=== PATIENT | female | born 1935 | race Two or more races ===

== ENCOUNTER 2023-11-06 15:50 | Inpatient (IN) | payer MEDICARE, OTHER ==
[~2023-11-06] VITALS: Ht 152.4 cm; Wt 87.6 kg
[2023-11-06 17:11] LABS: Basophils # (auto) 0.1 10 ^3/uL (0-0.2); Basophils % (auto) 0.8 % (0.0-2.0); Eosinophils # (auto) 0.1 10 ^3/uL (0-0.8); Eosinophils % (auto) 0.9 % (0.0-7.0); Hematocrit 37.5 % (36.0-46.0); Hemoglobin 12.1 g/dL (12.2-16.2); Lymphocytes # (auto) 0.9 10 ^3/uL (0.4-5.4); Lymphocytes % (auto) 12.4 % (10.0-50.0); Mean Corpuscular Hemoglobin 28.8 pg (28.0-32.0); Mean Corpuscular Hgb Conc. 32.4 g/dL (32.0-36.0); Mean Corpuscular Volume 89.1 fL (80.0-100.0); Monocytes # (auto) 0.4 10 ^3/uL (0-1.3); Monocytes % (auto) 6.1 % (0.0-12.0); Neutrophils # (auto) 5.5 10 ^3/uL (1.6-8.6); Neutrophils % (auto) 79.8 % (37.0-80.0); Red Blood Cells 4.21 10^6/uL (4.0-5.20); Red Cell Distribution Width 15.9 % (11.8-14.3); White Blood Cell 6.9 10^3/uL (4.4-10.8)
[2023-11-06 17:23] LABS: Alanine Aminotransferase 32 U/L (7-40); Albumin 4.4 g/dL (3.2-4.8); Alkaline Phosphatase 128 U/L (46-116); Anion Gap 5 (5-15); Aspartate Aminotransferase 31 U/L (13-40); BUN/Creatinine Ratio 10.5 (10.0-20.0); Blood Urea Nitrogen 12 mg/dL (9-23); Calcium 9.1 mg/dL (8.7-10.4); Carbon Dioxide 27 mmol/L (20-30); Chloride 108 mmol/L (98-107); Glucose 133 mg/dL (74-106); Magnesium 2.1 mg/dL (1.6-2.6); Sodium 140 mmol/L (136-145)
[2023-11-06 17:24] LABS: Bilirubin, Total 1.4 mg/dL (0.2-1.0); Total Protein 7.3 g/dL (5.7-8.2)
[2023-11-06 18:00] VITALS: PULSE 60; RESP 18; O2SAT 92
[2023-11-06 18:36] LABS: Urine Bacteria FEW /hpf (None Seen); Urine Blood Negative /uL (Negative); Urine Clarity Clear (Clear); Urine Color Colorless (Yellow); Urine Protein, UAD Negative (Negative); Urine Specific Gravity 1.011 (1.001-1.035); Urine Urobilinogen Normal (Negative); Urine WBC 13 /hpf (0 - 5)
[2023-11-06 19:15] VITALS: PULSE 69; RESP 15; O2SAT 95
[2023-11-06] MEDS ORDERED: cefTRIAXone 1GM/50ML D5W 50 ML IV ONE (19:30)
[2023-11-06] MEDS ORDERED: MORPHINE SULFATE INJ 2 MG/ml SYRG IV PRN (20:45)
[2023-11-06] MEDS ORDERED: NITROGLYCERIN 0.4 MG SL TAB SL PRN (20:45)
[2023-11-06] MEDS ORDERED: ACETAMINOPHEN 325 MG TAB PO PRN (20:45)
[2023-11-06] MEDS ORDERED: ATOR20TA50 PO (21:12)
[2023-11-06] MEDS ORDERED: OLME20TA53 PO (21:12)
[2023-11-06] MEDS ORDERED: AMIO100T3 OR (21:12)
[2023-11-06] MEDS ORDERED: METO-158 PO (21:12)
[2023-11-06] MEDS ORDERED: FURO20TA3 PO (21:12)
[2023-11-06] MEDS ORDERED: DOCU-94 PO (21:12)
[2023-11-06] MEDS ORDERED: CYA100I IM (21:12)
[2023-11-06] MEDS ORDERED: LEVO112T2 PO (21:12)
[2023-11-06] MEDS ORDERED: ESCI10TA PO (21:12)
[2023-11-06] MEDS ORDERED: CHOL20007 OR (21:12)
[2023-11-06] MEDS ORDERED: RIVA10TA PO (21:12)
[2023-11-06] MEDS ORDERED: ALPR0.5T PO (21:15)
[2023-11-06] MEDS: ATORVASTATIN 20 MG TAB PO SCH ×2 (22:00→22:34)
[2023-11-06] MEDS: AMIODARONE HCL 200 MG TAB PO SCH ×2 (22:34→22:39)
[2023-11-07] VITALS (9 sets, daily range): BP systolic 136–169; BP diastolic 42–69; PULSE 59–69; RESP 16–18; TEMP 97.6–98.7; O2SAT 94–98
[2023-11-07 05:39] LABS: Basophils # (auto) 0.1 10 ^3/uL (0-0.2); Basophils % (auto) 0.9 % (0.0-2.0); Eosinophils # (auto) 0.1 10 ^3/uL (0-0.8); Eosinophils % (auto) 1.6 % (0.0-7.0); Hematocrit 35.5 % (36.0-46.0); Hemoglobin 11.7 g/dL (12.2-16.2); Lymphocytes # (auto) 1.1 10 ^3/uL (0.4-5.4); Mean Corpuscular Hemoglobin 29.3 pg (28.0-32.0); Mean Corpuscular Hgb Conc. 33.1 g/dL (32.0-36.0); Mean Corpuscular Volume 88.5 fL (80.0-100.0); Monocytes # (auto) 0.5 10 ^3/uL (0-1.3); Monocytes % (auto) 7.5 % (0.0-12.0); Red Blood Cells 4.02 10^6/uL (4.0-5.20); Red Cell Distribution Width 15.6 % (11.8-14.3); White Blood Cell 6.8 10^3/uL (4.4-10.8)
[2023-11-07 05:47] LABS: Alanine Aminotransferase 31 U/L (7-40); Alkaline Phosphatase 115 U/L (46-116); Anion Gap 11 (5-15); Aspartate Aminotransferase 30 U/L (13-40); BUN/Creatinine Ratio 10.3 (10.0-20.0); Blood Urea Nitrogen 11 mg/dL (9-23); Carbon Dioxide 21 mmol/L (20-30); Chloride 108 mmol/L (98-107); Glucose 112 mg/dL (74-106); Potassium 3.8 mmol/L (3.5-5.1); Sodium 140 mmol/L (136-145)
[2023-11-07 05:48] LABS: Albumin 3.9 g/dL (3.2-4.8); Bilirubin, Total 1.4 mg/dL (0.2-1.0); Total Protein 6.7 g/dL (5.7-8.2)
[2023-11-07] MEDS ORDERED: LEVOTHYROXINE SODIUM 112 MCG TAB PO SCH (07:00)
[2023-11-07] MEDS: AMIODARONE HCL 200 MG TAB PO SCH ×2 (10:00→11:02)
[2023-11-07] MEDS: FUROSEMIDE 20 MG TAB PO SCH ×2 (10:00→11:02)
[2023-11-07] MEDS: METOPROLOL SUCCINATE XL 50 MG TAB PO SCH ×2 (10:00→11:01)
[2023-11-07] MEDS: cefTRIAXone 1GM/50ML D5W 50 ML IV SCH (11:00)
[2023-11-07] MEDS ORDERED: POTASSIUM CHL 10 Meq TABLET PO SCH (12:56)
[2023-11-07] MEDS ORDERED: hydroCHLOROthiazide 25 MG TAB PO ONE (13:15)
[2023-11-07] MEDS ORDERED: hydrALAZINE HCL 20 MG/ML VL IV PRN (13:15)
[2023-11-07] MEDS: LEXAPRO 10 MG PO SCH (15:22)
[2023-11-07] MEDS: TOPROL 50 MG PO SCH (15:22)
[2023-11-07] MEDS: KLOR CON 8 MEQ PO SCH (15:24)
[2023-11-07] MEDS: BENICAR 20 MG PO SCH (15:26)
[2023-11-07] MEDS ORDERED: RIVAROXABAN 15 MG TAB PO SCH (18:00)
[2023-11-07] MEDS ORDERED: XANAX 0.5 MG PO SCH (22:00)
[2023-11-07] MEDS: LIPITOR 20 MG PO SCH (22:00)
[2023-11-07] MEDS: XARELTO 15 MG PO SCH (22:00)
[2023-11-08] VITALS (7 sets, daily range): BP systolic 126–152; BP diastolic 42–79; PULSE 60–72; RESP 14–20; TEMP 97.7–98.6; O2SAT 93–97
[2023-11-08 05:08] LABS: Basophils # (auto) 0.1 10 ^3/uL (0-0.2); Basophils % (auto) 0.9 % (0.0-2.0); Eosinophils # (auto) 0.1 10 ^3/uL (0-0.8); Eosinophils % (auto) 1.9 % (0.0-7.0); Hematocrit 36.1 % (36.0-46.0); Hemoglobin 11.8 g/dL (12.2-16.2); Lymphocytes # (auto) 1.2 10 ^3/uL (0.4-5.4); Lymphocytes % (auto) 20.7 % (10.0-50.0); Mean Corpuscular Hemoglobin 28.6 pg (28.0-32.0); Mean Corpuscular Hgb Conc. 32.7 g/dL (32.0-36.0); Mean Corpuscular Volume 87.5 fL (80.0-100.0); Monocytes # (auto) 0.5 10 ^3/uL (0-1.3); Monocytes % (auto) 8.6 % (0.0-12.0); Neutrophils # (auto) 3.9 10 ^3/uL (1.6-8.6); Neutrophils % (auto) 67.9 % (37.0-80.0); Nucleated Red Blood Cells % 0.1 %; Red Blood Cells 4.12 10^6/uL (4.0-5.20); Red Cell Distribution Width 15.9 % (11.8-14.3); White Blood Cell 5.8 10^3/uL (4.4-10.8)
[2023-11-08 05:15] LABS: Calcium 9.2 mg/dL (8.7-10.4); Chloride 106 mmol/L (98-107); Potassium 3.9 mmol/L (3.5-5.1); Sodium 140 mmol/L (136-145)
[2023-11-08 05:16] LABS: Anion Gap 10 (5-15); Carbon Dioxide 24 mmol/L (20-30)
[2023-11-08 05:21] LABS: BUN/Creatinine Ratio 11.2 (10.0-20.0); Blood Urea Nitrogen 13 mg/dL (9-23); Glucose 113 mg/dL (74-106)
[2023-11-08 05:26] LABS: INR 1.42 (0.9-1.15); Partial Thromboplastin Time 56.4 SEC (24.5-34.5); Prothrombin Time 14.6 sec (9.3-11.8)
[2023-11-08] MEDS ORDERED: SYNTHROID 112 MCG PO SCH (07:00)
[2023-11-08] MEDS: cefTRIAXone 1GM/50ML D5W 50 ML IV SCH (08:48)
[2023-11-08] MEDS: BENICAR 20 MG PO SCH ×2 (10:00→10:42)
[2023-11-08] MEDS: LEXAPRO 10 MG PO SCH ×2 (10:00→21:31)
[2023-11-08] MEDS: TOPROL 50 MG PO SCH (10:00)
[2023-11-08] MEDS ORDERED: PATIENTS OWN MEDICATION PO SCH ×2 (10:00)
[2023-11-08] MEDS: hydroCHLOROthiazide 25 MG TAB PO SCH (10:24)
[2023-11-08] MEDS: KLOR CON 8 MEQ PO SCH (10:28)
[2023-11-08] MEDS ORDERED: FUROSEMIDE 40 MG/4 ML VIAL IV ONE (16:45)
[2023-11-08] MEDS: LIPITOR 20 MG PO SCH (21:31)
[2023-11-08] MEDS: XARELTO 15 MG PO SCH (22:00)
[2023-11-09] VITALS (8 sets, daily range): BP systolic 120–147; BP diastolic 40–56; PULSE 60–70; RESP 18–20; TEMP 97.9–98; O2SAT 91–97
[2023-11-09] MEDS: ONDANSETRON HCL 4 MG/2 ML VIAL IV PRN ×2 (04:55→09:31)
[2023-11-09 06:33] LABS: Basophils # (auto) 0.1 10 ^3/uL (0-0.2); Basophils % (auto) 0.8 % (0.0-2.0); Eosinophils # (auto) 0.1 10 ^3/uL (0-0.8); Eosinophils % (auto) 1.8 % (0.0-7.0); Hematocrit 34.4 % (36.0-46.0); Hemoglobin 11.4 g/dL (12.2-16.2); Lymphocytes # (auto) 1.2 10 ^3/uL (0.4-5.4); Lymphocytes % (auto) 18.5 % (10.0-50.0); Mean Corpuscular Hgb Conc. 33.1 g/dL (32.0-36.0); Mean Corpuscular Volume 87.5 fL (80.0-100.0); Monocytes # (auto) 0.6 10 ^3/uL (0-1.3); Monocytes % (auto) 9.7 % (0.0-12.0); Neutrophils # (auto) 4.3 10 ^3/uL (1.6-8.6); Neutrophils % (auto) 69.2 % (37.0-80.0); Nucleated Red Blood Cells % 0.1 %; Red Blood Cells 3.93 10^6/uL (4.0-5.20); Red Cell Distribution Width 15.2 % (11.8-14.3); White Blood Cell 6.3 10^3/uL (4.4-10.8)
[2023-11-09 06:44] LABS: Anion Gap 11 (5-15); Carbon Dioxide 24 mmol/L (20-30); Chloride 103 mmol/L (98-107); Potassium 3.7 mmol/L (3.5-5.1); Sodium 138 mmol/L (136-145)
[2023-11-09 06:45] LABS: Calcium 8.8 mg/dL (8.7-10.4)
[2023-11-09 06:50] LABS: BUN/Creatinine Ratio 10.9 (10.0-20.0); Blood Urea Nitrogen 14 mg/dL (9-23); Glucose 116 mg/dL (74-106)
[2023-11-09] MEDS ORDERED: LEVOTHYROXINE SODIUM 25 MCG TAB PO SCH (07:00)
[2023-11-09] MEDS ORDERED: LEVOTHYROXINE SODIUM 112 MCG TAB PO SCH (07:00)
[2023-11-09] MEDS: cefTRIAXone 1GM/50ML D5W 50 ML IV SCH (08:40)
[2023-11-09] MEDS: TOPROL 50 MG PO SCH (10:00)
[2023-11-09] MEDS: hydroCHLOROthiazide 25 MG TAB PO SCH (10:00)
[2023-11-09] MEDS: BENICAR 20 MG PO SCH (10:08)
[2023-11-09] MEDS: KLOR CON 8 MEQ PO SCH (10:09)
[2023-11-09] MEDS: LEXAPRO 10 MG PO SCH (10:10)
[2023-11-09] MEDS ORDERED: LEVO-140 PO (15:29)
[2023-11-09] MEDS ORDERED: CEPH250C PO (15:29)
== END 2023-11-09 17:55 | disposition home or self-care (01) | DRG 280 ==
LOC: ER 15:50 → TELE 20:51 → TELE-WESTW 23:34
PROVIDERS: ADMIT Internal Medicine; ATTEND Internal Medicine
PROC: 4B02XSZ Measurement of Cardiac Pacemaker, External Approach (ICD-10-PCS; principal; 2023-11-08)
DX: I13.0 Hypertensive heart and chronic kidney disease with heart failure and stage 1 through stage 4 chronic kidney disease, or unspecified chronic kidney disease (principal); I21.A1 Myocardial infarction type 2; I50.33 Acute on chronic diastolic (congestive) heart failure; J96.00 Acute respiratory failure, unspecified whether with hypoxia or hypercapnia; N17.0 Acute kidney failure with tubular necrosis; D68.59 Other primary thrombophilia; N39.0 Urinary tract infection, site not specified; I48.21 Permanent atrial fibrillation; Z66 Do not resuscitate; R00.1 Bradycardia, unspecified; E03.9 Hypothyroidism, unspecified; E66.9 Obesity, unspecified; Z96.642 Presence of left artificial hip joint; E78.5 Hyperlipidemia, unspecified; N18.9 Chronic kidney disease, unspecified; Z79.01 Long term (current) use of anticoagulants; Z82.49 Family history of ischemic heart disease and other diseases of the circulatory system; Z83.3 Family history of diabetes mellitus; Z95.0 Presence of cardiac pacemaker; Z68.37 Body mass index [BMI] 37.0-37.9, adult; Z88.5 Allergy status to narcotic agent; Z88.8 Allergy status to other drugs, medicaments and biological substances; Z90.49 Acquired absence of other specified parts of digestive tract
CPT/HCPCS: 36415; 71045; 71250; 80048; 80053; 81001; 83735; 83880; 84439; 84443; 84484; 85025; 85610; 85730; 86850; 86900; 86901; 87086; 87088; 87186; 93005; 93306; 96365; 97110; 97116; 97163; 97530; 99291; G0378; J2405

== ENCOUNTER 2025-01-01 16:27 | Inpatient (IN) | payer MEDICARE, OTHER ==
[~2025-01-01] VITALS: Ht 152.4 cm; Wt 84.4 kg
[~2025-01-01 16:27] MED LIST: ALPR0.5T PO; AMIO100T3 OR; ATOR20TA50 PO; CEPH250C PO; CHOL20007 OR; CYA100I IM; DOCU-94 PO; ESCI10TA PO; FEXO-131 PO; FURO20TA3 PO; LEVO-140 PO; METO-158 PO; METO25TA36 PO; OLME20TA53 PO; POM PO; POTA8TAB38 PO; RIVA10TA PO
--- NOTE | 2025-01-01 16:49 | ECG ---
[facility] Test Date: 2025-01-01 Test Time: 16:34:30 Pat Name: DEANDRE GRAMAJO Department: ER Room: 0290T Gender: F Cvicu Nurse: ERIC : 1935 Requested By: HUNTER BARON Order Number: [id number] Reading MD: Cole Hall Measurements Intervals [place] Rate: 93 P: 0 CA: 0 QRS: -74 QRSD: 111 T: 217 QT: 357 QTc: 445 Interpretive Statements Atrial fibrillation Incomplete left bundle branch block LVH with secondary repolarization abnormality Anterior Q waves, possibly due to LVH Electronically Signed On 01-07-2025 16:57:52 PST by Cole Hall Please click the below link to view image of tracing.
--- NOTE | 2025-01-01 17:39 | ED.PDOC ---
Uma. trauma (HPI) HPI Comments 89 y.o female with PMHx of AFIB, HTN, CHF, thyroid disease, presents to the ED via EMS s/p mechanical fall today. Patient reports she was reaching over to hang and object over the back of a chair at home, lost balance and fell on her left side. Patient complains of left hip and pelvic pain and is unable to bear any we ight on left lower extremity. Patient denies any dizziness, lightheadedness, chest pain, SOB or LOC during fall. Patient reports previous falling incidents recently with right shoulder fracture. Chief Complaint: Fall Injury Time Seen by MD: 17:31 Primary Care Provider: UNKNOWN Reviewed notes: Nurses Notes, Sheriff Deputy Notes, Medications, Allergies Allergies: Coded Allergies: Codeine (Verified Allergy, Unknown, 11/06/23) Hydrocodone (Verified Allergy, Unknown, 11/06/23) Home Meds Active Scripts Levothyroxine Sodium (Synthroid) 137 Mcg Tab, 137 MCG PO QAM for 30 Days, #30 TAB Prov:JOSE L FLORES MD 11/09/23 Cephalexin (KEFLEX CAPSULE) 250 Mg Cp, 500 MG PO TID for 5 Days, #15 CAP Prov:JOSE L FLORES MD 11/09/23 Reported Medications Alprazolam (Xanax) 0.5 Mg Tb, 1 TAB PO DAILY, #30 TAB 11/06/23 Amiodarone Hcl (AMIODARONE HCL) 100 Mg Tab, 100 MG OR BID, TAB 11/06/23 Docusate Sodium (Colace) 100 Mg Cap, 100 MG PO DAILY, CAP 11/06/23 Cholecalciferol (VITAMIN D3) 2,000 Unit Tab, 1000 UNIT OR, TAB 11/06/23 Vitamin B12 (Vitamin B-12) 1,000 Mcg/1 Ml Ij, 1000 MCG IM, INJ 11/06/23 Atorvastatin Calcium (ATORVASTATIN CALCIUM) 20 Mg Tab, 1 TAB PO DAILY, #90 TAB 3 Refills 11/06/23 Furosemide (Furosemide) 20 Mg Tab, 20 MG PO DAILY, MG 11/06/23 Escitalopram Oxalate (Lexapro) 10 Mg Tab, 1 TAB PO DAILY, #30 TAB 11/06/23 Olmesartan Medoxomil (Benicar) 20 Mg Tab, 20 MG PO DAILY, TAB 12/29/23 Rivaroxaban (XARELTO) 10 Mg Tab, 15 MG PO DAILY, TAB 11/06/23 Metoprolol Tartrate (Metoprolol Tartrate) 50 Mg Tab, 50 MG PO DAILY for 30 Days, MG 11/06/23 Information Source: Patient Mode of Arrival: EMS Severity: Moderate Timing: Hours Duration: Since onset Location: (L) Hip Location of laceration: None Mechanism: Fall Associated signs and symtoms: Other Past Medical History PAST MEDICAL HISTORY: AFIB, Anemia, Anxiety, CKF, High Lipids, HTN, Thyroid Surgical History: Cholecystectomy, Hysterectomy, Pacemaker Surgical History (Other): left shoulder and hemorrhoidectomy 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 Family History Family History: Reviewed,noncontributory to illness Social History Smoker: Non-Smoker Alcohol: Occasionally Drugs: Denies Drug Use Lives In: Home Constitutional: denies: chills, diaphoresis, fatigue, fever, malaise, sweats, weakness, others EENTM: denies: blurred vision, double vision, ear bleeding, ear discharge, ear drainage, ear pain, ear ringing, eye pain, eye redness, hearing loss, mouth pain, mouth swelling, nasal discharge, nose bleeding, nose congestion, nose pain, photophobia, tearing, throat pain, throat swelling, voice changes, others Respiratory: denies: cough, hemoptysis, orthopnea, SOB at rest, shortness of breath, SOB with excertion, stridor, wheezing, others Cardiovascular: denies: chest pain, dizzy spells, diaphoresis, Dyspnea on exertion, edema, irregular heart beat, left arm pain, lightheadedness, palpitations, PND, syncope, others Gastrointestinal: denies: abdomen distended, abdominal pain, blood streaked bowels, constipated, diarrhea, dysphagia, difficulty swallowing, hematemesis, melena, nausea, poor appetite, poor fluid intake, rectal bleeding, rectal pain, vomiting, others Genitourinary: denies: abnormal vagina bleeding, burning, dyspareunia, dysuria, flank pain, frequency, hematuria, incontinence, pain, , vagina discharge, urgency, others Neurological: denies: dizziness, fainting, headache, left sided numbness, left sided weakness, numbness, paresthesia, pre-existing deficit, right sided numbness, right sided weakness, seizure, speech problems, tingling, tremors, weakness, others Musculoskeletal: reports: others (left hip pain and pelvic pain ); denies: back pain, gout, joint pain, joint swelling, muscle pain, muscle stiffness, neck pain Integumetry: denies: bruises, change in color, change in hair/nails, dryness, laceration, lesions, lumps, rash, wounds, others Allergic/Immunocompromised: denies: Difficulty Healing, Frequent Infections, Hives, Itching, others Hematologic/Lymphatic: denies: anemia, blood clots, easy bleeding, easy br uising, swollen glands, others Endocrine: denies: excessive hunger, excessive sweating, excessive thirst, excessive urination, flushing, intolerance to cold, intolerance to heat, unexplained weight gain, unexplained weight loss, others Psychiatric: denies: anxiety, bipolar disorder, depression, hopeless, panic disorder, schizophrenia, sleepless, suicidal, others All Other Systems: Reviewed and Negative Physical Exam General Appearance: No Apparent Distress, Obese HEENT: Other (Pupils and face symmetric. Moist mucous membranes.) Neck: Full Range of Motion, Non-Tender, Normal Inspection, Supple Respiratory: Lungs Clear, No Accessory Muscle Use, No Respiratory Distress, Normal Breath Sounds Cardiovascular: Irregular, No Edema, No JVD Breast Exam: Deferred Gastrointestinal: Non Tender, Soft Genitalia: Deferred Pelvic: Deferred Rectal: Deferred Extremities: Normal inspection, No pedal edema, Other (Pelvic bony tenderness at the area of overlying and to the left of the pubic symphysis. Left hip lateral soft tissue tenderness and painful range of motion) Neurologic: Alert (Oriented x4), Normal Affect, Normal Mood, Other (Moves all extremities. No gross focal deficit.) Cerebellar Function: NOT DONE Reflexes: NOT DONE Skin: Dry, Normal Color, Warm Lymphatic: NOT DONE Was a procedure done? Was a procedure done?: No EKG EKG : Comments AFib, rate 93, normal QRS and QTC intervals, left axis deviation, possible old anteroseptal infarct, inferior and lateral T-wave inversion Differential Diagnosis Multiple Trauma: Fractures, Abrasions, Contusion, Other (Sprain, strain, dislocation, contusion, ACS, FL, arrhythmia, among others) X-Ray, Labs, Meds, VS Vital Signs Date Time Temp Pulse Resp B/P (MAP) Pulse Ox O2 Delivery O2 Flow Rate FiO2 01/01/25 22:17 124 16 132/73 01/01/25 16:34 93 01/01/25 16:27 98.3 90 18 139/61 (87) 97 Lab Test 01/01/25 22:32 01/01/25 21:09 01/01/25 19:00 01/01/25 18:08 Range/Units POC Glucose 170 H 70-106 mg/dl Troponin I High Sensitivity 68 *H 69 *H 69 *H </=34 ng/L White Blood Count 18.9 H 4.4-10.8 10^3/uL Red Blood Count 4.85 4.0-5.20 10^6/uL Hemoglobin 13.4 12.2-16.2 g/dL Hematocrit 41.5 36.0-46.0 % Mean Corpuscular Volume 85.4 80.0-100.0 fL Mean Corpuscular Hemoglobin 27.7 L 28.0-32.0 pg Mean Corpuscular Hemoglobin Concent 32.4 32.0-36.0 g/dL Red Cell Distribution Width 16.5 H 11.8-14.3 % Platelet Count 183 140-450 10^3/uL Mean Platelet Volume 8.4 6.9-10.8 fL Neutrophils (%) (Auto) 90.3 H 37.0-80.0 % Lymphocytes (%) (Auto) 4.2 L 10.0-50.0 % Monocytes (%) (Auto) 5.2 0.0-12.0 % Eosinophils (%) (Auto) 0.1 0.0-7.0 % Basophils (%) (Auto) 0.2 0.0-2.0 % Neutrophils # (Auto) 17.1 H 1.6-8.6 10 ^3/uL Lymphocytes # (Auto) 0.8 0.4-5.4 10 ^3/uL Monocytes # (Auto) 1.0 0-1.3 10 ^3/uL Eosinophils # (Auto) 0 0-0.8 10 ^3/uL Basophils # (Auto) 0 0-0.2 10 ^3/uL Nucleated Red Blood Cells 0.0 % Sodium Level 142 136-145 mmol/L Potassium Level 3.8 3.5-5.1 mmol/L Chloride Level 106 98-107 mmol/L Carbon Dioxide Level 23 20-31 mmol/L Anion Gap 13 5-15 Blood Urea Nitrogen 16 9-23 mg/dL Creatinine 1.28 H 0.550-1.02 mg/dL Glomerular Filtration Rate Calc 41 >90 mL/min BUN/Creatinine Ratio 12.5 10.0-20.0 Serum Glucose 140 H 74-106 mg/dL Calcium Level 9.7 8.7-10.4 mg/dL B-Type Natriuretic Peptide 149.96 0-100 pg/mL [place] [address] Ph: [phone] DIAGNOSTIC IMAGING Diagnostic Imaging Report : [id number] Signed PATIENT: DEANDRE GRAMAJO ACCT: [id number] UNIT: [id number] : 1935 LOC: ER ROOM / BED: / AGE / SEX: 89 / F ADM STATUS: REG ER SERVICE 54 ORDERING PHYSICIAN: HUNTER BROWN MD PROCEDURE(s): CXRP - CHEST PORTABLE REASON: fall ORDER NUMBER(s): [id number], ACCESSION NUMBER(s): [id number] CHEST RADIOGRAPH Indication: fall Technique: Single frontal view of the chest was obtained Comparison: XY CHEST PORTABLE on DOS: 11/06/23 FINDINGS: Lines and Tubes: Pacemaker in place unchanged Lungs: No focal consolidation. Pleura: No effusion. No pneumothorax. Cardiomediastinal contours: Unremarkable Bones: No acute osseous abnormality. IMPRESSION: 1. No acute cardiopulmonary disease. 2. No significant change from 3. No pneumothorax no pleural. 4. Internal fixation device in place in the proximal left humerus. ATED BY: JOSÉ MIGUEL CHANDLER Jr., DO DICTATED DATE/TIME: 01/01/251832 SIGNED BY: JOSÉ MIGUEL CHANDLER Jr., SIGNED DATE/TIME: 01/01/251832 CC: [address] [address] Ph: [phone] DIAGNOSTIC IMAGING Diagnostic Imaging Report : [id number] Signed PATIENT: DEANDRE GRAMAJO ACCT: [id number] UNIT: [id number] : 1935 LOC: ER ROOM / BED: / AGE / SEX: 89 / F ADM STATUS: REG ER SERVICE 54 ORDERING PHYSICIAN: HUNTER BROWN MD PROCEDURE(s): PL2CT - PELVIS WO CONTRAST REASON: pelvic pain s/p fall ORDER NUMBER(s): [id number], ACCESSION NUMBER(s): [id number] Exam: CT PELVIS WO CONTRAST History: pelvic pain s/p fall Comparison Study: None available at time of dictation. Technique: Multidetector CT of the pelvis was performed from iliac crests to pubic symphysis after the administration of intravenous contrast was administered during this examination. Portal venous imaging was obtained. Axial, coronal and sagittal multiplanar reformats were performed by the technologist on a separate workstation. Radiation Dose : CT Dose: CTDI volume is 26.31 mGy. Dose-length product is 1255.75 mGy*cm Findings: Visualized bowel: No bowel wall thickening or dilatation. Ascites: Absent Lymphadenopathy: No pelvic or mesenteric lymphadenopathy. Vasculature: The visualized abdominal aorta is normal in size and caliber. Abdominal and pelvic vessels demonstrate normal enhancement. Pelvic Organs: Unremarkable Musculoskeletal: No acute osseous abnormality. Minimally displaced fracture of the inferior pubic ramus on the left. Internal fixation device noted in the proximal left femur. Bladder: Unremarkable Soft tissues: Unremarkable. IMPRESSION: 1. Minimally displaced fracture inferior pubic ramus on the left 2. Internal fixation device in the proximal left femur All CT scans at this medical facility are performed using dose modulation techniques as appropriate to a performed exam including the following: Automated exposure control was utilized; adjustment of the MA and/or KV according to patient size; and use of iterative reconstruction technique. ATED BY: JOSÉ MIGUEL CHANDLER Jr., DO DICTATED DATE/TIME: 01/01/251830 SIGNED BY: JOSÉ MIGUEL CHANDLER Jr., SIGNED DATE/TIME: 01/01/251830 CC: X-Ray, Labs, Meds, VS Comment 89-year-old female with a history of AFib, anemia, CKD, hypertension, hyperlipidemia and thyroid disease brought in by EMS from home complaining of left-sided hip and pelvic pain status post mechanical fall Vitals unremarkable Exam remarkable for left-sided hip soft tissue tenderness with painful range of motion and bony pelvic pain overlying and to the left of the area of the pubic symphysis Rhythm strip independently interpreted by me: AFib, rate 93, no PVCs Chest x-ray IMPRESSION: 1. No acute cardiopulmonary disease. 2. No significant change from 3. No pneumothorax no pleural. 4. Internal fixation device in place in the proximal left humerus. CT pelvis IMPRESSION: 1. Minimally displaced fracture inferior pubic ramus on the left 2. Internal fixation device in the proximal left femur CBC remarkable for WBC 18.9, metabolic panel remarkable for creatinine 1.28, serial troponins 69, 69 and 68 BNP 149.96 Patient treated with the following in the ED: Morphine 2 mg IV, Zofran 4 mg IV, aspirin 325 mg p.o. On re-evaluation, patient states hip and pelvic pain have improved. Vitals were stable. She is not having any chest pain or shortness breath. Plan is to admit the patient for orthopedic and Cardiology evaluation. Time of 1ST Reevaluation: 17:36 Reevaluation 1ST: Unchanged Patient Education/Counseling: Diagnosis, Treatment, Prognosis Family Education/Counseling: No Family Present Departure 1 Departure Time of Disposition: 22:15 Impression: Primary Impression: Fracture of left inferior pubic ramus Qualified Codes: S32.592A - Other specified fracture of left pubis, initial encounter for closed fracture Additional Impression: Elevated troponin Disposition: ADMITTED INPATIENT Admit to: [facility] Condition: Guarded Critical Care Note Critical Care Time?: No Stability Stability form required: No Heart Score Heart Score: Heart Score Response (Comments) Value History Slightly Suspicious [address]-Deviation 2 Age >65 2 Risk Factors N/A 0 Troponin N/A 0 Total 4 I personally scribed for HUNTER BROWN MD ([facility]) on 01/01/25 at 17:39. Electronically submitted by Danika Pérez ([facility]). I personally scribed for HUNTER BROWN MD ([email or web address]) on 01/01/25 at 19:50. Electronically submitted by Danika Pérez ([facility]). HUNTER BROWN MD Jan 01, 2025 17:39
[2025-01-01 18:28] LABS: Basophils # (auto) 0 10 ^3/uL (0-0.2); Basophils % (auto) 0.2 % (0.0-2.0); Eosinophils # (auto) 0 10 ^3/uL (0-0.8); Eosinophils % (auto) 0.1 % (0.0-7.0); Hematocrit 41.5 % (36.0-46.0); Hemoglobin 13.4 g/dL (12.2-16.2); Lymphocytes # (auto) 0.8 10 ^3/uL (0.4-5.4); Lymphocytes % (auto) 4.2 % (10.0-50.0); Mean Corpuscular Hemoglobin 27.7 pg (28.0-32.0); Mean Corpuscular Hgb Conc. 32.4 g/dL (32.0-36.0); Mean Corpuscular Volume 85.4 fL (80.0-100.0); Monocytes % (auto) 5.2 % (0.0-12.0); Neutrophils # (auto) 17.1 10 ^3/uL (1.6-8.6); Neutrophils % (auto) 90.3 % (37.0-80.0); Platelet Count (auto) 183 10^3/uL (140-450); Red Blood Cells 4.85 10^6/uL (4.0-5.20); Red Cell Distribution Width 16.5 % (11.8-14.3); White Blood Cell 18.9 10^3/uL (4.4-10.8)
--- NOTE | 2025-01-01 18:34 | DVH ---
Exam: CT PELVIS WO CONTRAST History: pelvic pain s/p fall Comparison Study: None available at time of dictation. Technique: Multidetector CT of the pelvis was performed from iliac crests to pubic symphysis after th e administration of intravenous contrast was administered during this examination. Portal venous imag ing was obtained. Axial, coronal and sagittal multiplanar reformats were performed by the [employer] t on a separate workstation. Radiation Dose : CT Dose: CTDI volume is 26.31 mGy. Dose-length product is 1255.75 mGy*cm Findings: Visualized bowel: No bowel wall thickening or dilatation. Ascites: Absent Lymphadenopathy: No pelvic or mesenteric lymphadenopathy. Vasculature: The visualized abdominal aorta is normal in size and caliber. Abdominal and pelvic vesse ls demonstrate normal enhancement. Pelvic Organs: Unremarkable Musculoskeletal: No acute osseous abnormality. Minimally displaced fracture of the inferior pubic belle us on the left. Internal fixation device noted in the proximal left femur. Bladder: Unremarkable Soft tissues: Unremarkable. IMPRESSION: 1. Minimally displaced fracture inferior pubic ramus on the left 2. Internal fixation device in the proximal left femur All CT scans at this medical facility are performed using dose modulation techniques as appropriate t o a performed exam including the following: Automated exposure control was utilized; adjustment of th e MA and/or KV according to patient size; and use of iterative reconstruction technique.
--- NOTE | 2025-01-01 18:35 | DVH ---
CHEST RADIOGRAPH Indication: fall Technique: Single frontal view of the chest was obtained Comparison: XY CHEST PORTABLE on DOS: 11/06/23 FINDINGS: Lines and Tubes: Pacemaker in place unchanged Lungs: No focal consolidation. Pleura: No effusion. No pneumothorax. Cardiomediastinal contours: Unremarkable Bones: No acute osseous abnormality. IMPRESSION: 1. No acute cardiopulmonary disease. 2. No significant change from 3. No pneumothorax no pleural. 4. Internal fixation device in place in the proximal left humerus.
[2025-01-01 18:53] LABS: Chloride 106 mmol/L (98-107); Potassium 3.8 mmol/L (3.5-5.1); Sodium 142 mmol/L (136-145)
[2025-01-01 18:54] LABS: Anion Gap 13 (5-15); Calcium 9.7 mg/dL (8.7-10.4); Carbon Dioxide 23 mmol/L (20-31)
[2025-01-01 18:59] LABS: BUN/Creatinine Ratio 12.5 (10.0-20.0); Blood Urea Nitrogen 16 mg/dL (9-23); Glucose 140 mg/dL (74-106)
[2025-01-01 22:10] VITALS: O2SAT 98
[2025-01-01] MEDS: ONDANSETRON HCL 4 MG/2 ML VIAL IV ONE (22:17)
[2025-01-01] MEDS: MORPHINE SULFATE INJ 2 MG/ml SYRG IV ONE (22:17)
[2025-01-01] MEDS ORDERED: MORPHINE SULFATE INJ 2 MG/ml SYRG IV PRN (22:30)
[2025-01-01] MEDS ORDERED: NITROGLYCERIN 0.4 MG SL TAB SL PRN (22:30)
[2025-01-01] MEDS ORDERED: PATIENTS OWN MEDICATION PO SCH (22:45)
[2025-01-01] MEDS: ASPirin 325 MG TAB PO ONE (23:13)
[2025-01-01 23:20] LABS: Urine Bacteria FEW /hpf (None Seen); Urine Blood Negative /uL (Negative); Urine Clarity Clear (Clear); Urine Color Light-Yellow (Yellow); Urine Protein, UAD Negative (Negative); Urine Squamous Epithelial Cell FEW /hpf (<5); Urine Urobilinogen Normal (Negative); Urine WBC 5 /HPF (0-5); Urine pH 5.5 (5.0-9.0)
[2025-01-01] MEDS: ACETAMINOPHEN 325 MG TAB PO PRN (23:24)
[2025-01-01] MEDS: ALPRAZolam 0.5 MG TAB PO SCH (23:25)
[2025-01-01] MEDS: METOPROLOL TARTRATE 1MG/1ML-5ML VIAL IV ONE (23:36)
[2025-01-01 23:59] VITALS: PULSE 114; RESP 18; O2SAT 97
[2025-01-02] VITALS (8 sets, daily range): BP systolic 94–126; BP diastolic 56–74; PULSE 78–114; RESP 16–20; TEMP 97.4–98.6; O2SAT 91–97
[2025-01-02 00:36] LABS: Erythrocyte Sedimentation Rate 12 mm/hr (0-20)
[2025-01-02] MEDS: RIVAROXABAN 15 MG TAB PO SCH (00:46)
[2025-01-02] MEDS: AMIODARONE HCL 200 MG TAB PO SCH (00:47)
[2025-01-02 01:38] LABS: COVID19 ANTIGEN SOFIA FIA NEGATIVE (NEGATIVE); Rapid Influenza A Negative (Negative); Rapid Influenza B Negative (Negative)
[2025-01-02] MEDS: cefTRIAXone 1GM/50ML D5W 50 ML IV SCH (03:36)
--- NOTE | 2025-01-02 03:45 | DVHHPRES ---
History of Present Illness Resident Creating Document: ARJUN LACEY RESIDENT Reason for Visit: fall History of Present Illness A 89 y old female with PMHx afib, HTN, hypothyrodisim, HF who came to the ED due to a fall, she stated that at 3 pm she was in a chair and trying to reach her pijama when she felt. Pt denies any syncope, any prodromes, now she has pain in the left side of the hip when she tried to move. Pt states that 2 years ago she had a left fracture and in 2014 a left should fracture, according to the daughter, she is being falling many times Home meds: alprazolam, amiodarone 100 mg BID, atorvastatin 20 mg, lexapro 10 mg daily, synthroid 137 mcg, metoprolol succinate 25 mg, xarelto 15 mg daily, lasix 20 mg Last echo nov 2024: EF 67%, atrial enlargement, mild thickening of the LV Review of Systems Constitutional: No: Fever, Chills, Sweats, Weakness, Malaise, Other Eyes: No: Pain, Vision change, Conjunctivae inflammation, Eyelid inflammation, Other, Redness ENT: No: Ear pain, Ear discharge, Nose pain, Nose discharge, Nose congestion, Mouth pain, Mouth swelling, Throat pain, Throat swelling, Other Respiratory: No: Cough, Dry, Shortness of breath, SOB with excertion, Wheezing, Hemoptysis, Pleuritic Pain, Sputum, Wheezing, Other Cardiovascular: No: Chest Pain, Palpitations, Orthopnea, Paroxysmal Noc. Dy spnea, Edema, Lt Headedness, Other Gastrointestinal: No: Nausea, Vomiting, Abdominal Pain, Diarrhea, Constipation, Melena, Hematochezia, Other Genitourinary: No Dysuria, No Frequency, No Incontinence, No Hematuria, No Retention, No Other Musculoskeletal: No: other, neck pain, shoulder pain, arm pain, back pain, hand pain, leg pain, foot pain Skin: No: Rash, Lesions, Jaundice, Bruising, Other Neurological: No: Weakness, Numbness, Incoordination, Change in speech, Confusion, Seizures, Other Allergies: Coded Allergies: Codeine (Verified Allergy, Unknown, 11/06/23) Hydrocodone (Verified Allergy, Unknown, 11/06/23) Medications Current Medications Medications Dose Ordered Sig/Gamaliel Route Start Time Stop Time Status Last Admin Dose Admin Tramadol HCl 50 mg [id number] PRN PO 01/01/25 22:30 Nitroglycerin 0.4 mg Q5MINP PRN SL 01/01/25 22:30 Morphine Sulfate 2 mg Q30M PRN IV 01/01/25 22:30 Rivaroxaban 15 mg QPM PO 01/01/25 22:30 01/02/25 00:46 15 MG Metoprolol Succinate 25 mg DAILY PO 01/02/25 10:00 Alprazolam 0.5 mg DAILY PO 01/01/25 22:45 01/01/25 23:25 0.5 MG Acetaminophen 650 mg Q6HPRN PRN PO 01/01/25 23:15 01/01/25 23:24 650 MG Amiodarone HCl 100 mg BID PO 01/02/25 00:15 01/02/25 00:47 100 MG Exam Vital Signs Vital Signs Date Time Temp Pulse Resp B/P (MAP) Pulse Ox O2 Delivery O2 Flow Rate FiO2 01/02/25 00:16 98.6 114 20 123/72 (89) 97 98.6 01/01/25 22:10 Nasal Cannula* 2 28 General Appearance: Alert, Oriented X3, Cooperative HEENT: PERRLA, EOMI Respiratory: Clear to auscultation, Normal air movement Cardiovascular: Other (tachycardic ) Abdominal: Normal bowel sounds, Soft Extremities: No clubbing, No cyanosis Skin: No rashes, No breakdown Neuro: Normal gait, Normal speech Psych/Mental Status: Mental status NL, Mood NL Labs/Xrays Labs Test 01/02/25 00:00 01/01/25 23:45 01/01/25 23:02 01/01/25 22:32 Range/Units Influenza Type A Antigen Negative Negative Influenza Type B Antigen Negative Negative SARS-CoV-2 Antigen (Rapid) Negative NEGATIVE Erythrocyte Sedimentation Rate 12 0-20 mm/hr C-Reactive Protein High Sensitivity 0.53 <1.0 mg/dL Thyroid Stimulating Hormone (TSH) 0.87 0.55-4.78 uIU/mL POC Glucose 170 H 70-106 mg/dl Test 01/01/25 22:13 01/01/25 21:09 01/01/25 18:08 Range/Units Urine Color Light-yellow Yellow Urine Clarity Clear Clear Urine pH 5.5 5.0-9.0 Urine Specific [place] 1.020 1.001-1.035 Urine Protein Negative Negative Urine Ketones Negative Negative Urine Blood Negative Negative /uL Urine Nitrite Negative Negative Urine Bilirubin Negative Negative Urine Urobilinogen Normal Negative mg/dL Urine Leukocyte Esterase 2+ Negative /uL Urine RBC 1 0 - 4 /hpf Urine Microscopic WBC 5 0-5 /HPF Urine Squamous Epithelial Cells Few <5 /hpf Urine Bacteria Few H None Seen /hpf Urine Glucose Normal Normal mg/dL Troponin I High Sensitivity 68 *H </=34 ng/L White Blood Count 18.9 H 4.4-10.8 10^3/uL Red Blood Count 4.85 4.0-5.20 10^6/uL Hemoglobin 13.4 12.2-16.2 g/dL Hematocrit 41.5 36.0-46.0 % Mean Corpuscular Volume 85.4 80.0-100.0 fL Mean Corpuscular Hemoglobin 27.7 L 28.0-32.0 pg Mean Corpuscular Hemoglobin Concent 32.4 32.0-36.0 g/dL Red Cell Distribution Width 16.5 H 11.8-14.3 % Platelet Count 183 140-450 10^3/uL Mean Platelet Volume 8.4 6.9-10.8 fL Neutrophils (%) (Auto) 90.3 H 37.0-80.0 % Lymphocytes (%) (Auto) 4.2 L 10.0-50.0 % Monocytes (%) (Auto) 5.2 0.0-12.0 % Eosinophils (%) (Auto) 0.1 0.0-7.0 % Basophils (%) (Auto) 0.2 0.0-2.0 % Neutrophils # (Auto) 17.1 H 1.6-8.6 10 ^3/uL Lymphocytes # (Auto) 0.8 0.4-5.4 10 ^3/uL Monocytes # (Auto) 1.0 0-1.3 10 ^3/uL Eosinophils # (Auto) 0 0-0.8 10 ^3/uL Basophils # (Auto) 0 0-0.2 10 ^3/uL Nucleated Red Blood Cells 0.0 % Sodium Level 142 136-145 mmol/L Potassium Level 3.8 3.5-5.1 mmol/L Chloride Level 106 98-107 mmol/L Carbon Dioxide Level 23 20-31 mmol/L Anion Gap 13 5-15 Blood Urea Nitrogen 16 9-23 mg/dL Creatinine 1.28 H 0.550-1.02 mg/dL Glomerular Filtration Rate Calc 41 >90 mL/min BUN/Creatinine Ratio 12.5 10.0-20.0 Serum Glucose 140 H 74-106 mg/dL Calcium Level 9.7 8.7-10.4 mg/dL B-Type Natriuretic Peptide 149.96 0-100 pg/mL Assessment/Plan Assessment/Plan #Minimally displaced fracture inferior pubic ramus on the left #s/p Internal fixation device in the proximal left femur #Afib with RVR #UTI? #JENNIFER on possible CKD #HTN? #Hypothyroidism Admit Telemetry Metoprolol IV given Amiodarone 100 mg BID Metoprolol succinate 25 mg daily Xarelto 15 mg daily Ceftriaxone IV Pain management: tramadol and tylenol BPs soft TSH normal cardiology and ortho consult Case discussed with Dr Savage Time spent on care 23 min Plan discussed with: Patient, Other My Orders Orders - ARJUN LACEY RESIDENT Procedure Category Date Status Time Tramadol Hcl (Ultram) PHA 01/01/25 In Process 22:30 Admit ADMIT 01/01/25 Transmitted 22:28 Nitroglycerin PHA 01/01/25 In Process Sublingual (Ntrostat 22:30 Morphine Sulfate PHA 01/01/25 In Process Injection 22:30 Oxygen By Nasal RT 01/01/25 Transmitted Cannula 22:28 Stat Ekg For Chest HAYDEE 01/01/25 In Process Pain 22:28 Notify Md Of Changes HAYDEE 01/01/25 In Process From Base 22:28 Medical Transcriber For HAYDEE 01/01/25 In Process 24 Hours 22:28 Emergency Dysrhythmia HAYDEE 01/01/25 In Process Protocol 22:28 Rhythm Strips Once HAYDEE 01/01/25 In Process Every Shift 22:28 Clear Liq Diet DIET 01/02/25 Transmitted Breakfast Rivaroxaban Tablet PHA 01/01/25 In Process (Xarelto Tablet) 22:30 Metoprolol Xl PHA 01/02/25 In Process Succinate (Toprol Xl) 10:00 Blood Culture CARLENE 01/01/25 In Process 22:31 Urine Bacterial CARLENE 01/01/25 In Process Culture 22:31 Alprazolam Tablet PHA 01/01/25 In Process (Xanax Tablet) 22:45 * Cardiology Consult CONS 01/01/25 Transmitted 22:31 Acetaminophen Tablet PHA 01/01/25 In Process (Tylenol Tablet) 23:15 * Orthopedic Consult CONS 01/01/25 Transmitted 23:23 Amiodarone Tablet PHA 01/02/25 In Process (Cordarone Tablet) 00:15 Complete Blood Count LAB 01/02/25 Logged 04:00 Comprehensive LAB 01/02/25 Logged Metabolic Panel 04:00 Date of Service: Jan 01, 2025 Billing Provider: JOSE L SAVAGE MD [facility] RESIDENT Jan 02, 2025 03:45 JOSE L SAVAGE MD Jan 02, 2025 10:16
[2025-01-02 06:15] LABS: Basophils # (auto) 0 10 ^3/uL (0-0.2); Basophils % (auto) 0.4 % (0.0-2.0); Eosinophils # (auto) 0.1 10 ^3/uL (0-0.8); Eosinophils % (auto) 1.1 % (0.0-7.0); Hematocrit 40.1 % (36.0-46.0); Hemoglobin 12.7 g/dL (12.2-16.2); Lymphocytes # (auto) 0.6 10 ^3/uL (0.4-5.4); Lymphocytes % (auto) 5.4 % (10.0-50.0); Mean Corpuscular Hemoglobin 26.9 pg (28.0-32.0); Mean Corpuscular Hgb Conc. 31.7 g/dL (32.0-36.0); Monocytes # (auto) 0.5 10 ^3/uL (0-1.3); Monocytes % (auto) 4.2 % (0.0-12.0); Neutrophils # (auto) 10.6 10 ^3/uL (1.6-8.6); Neutrophils % (auto) 88.9 % (37.0-80.0); Nucleated Red Blood Cells % 0.1 %; Platelet Count (auto) 169 10^3/uL (140-450); Red Blood Cells 4.72 10^6/uL (4.0-5.20); Red Cell Distribution Width 16.4 % (11.8-14.3); White Blood Cell 11.9 10^3/uL (4.4-10.8)
[2025-01-02 06:31] LABS: Alanine Aminotransferase 17 U/L (7-40); Albumin 4.2 g/dL (3.2-4.8); Anion Gap 10 (5-15); Aspartate Aminotransferase 18 U/L (13-40); Blood Urea Nitrogen 17 mg/dL (9-23); Calcium 9.5 mg/dL (8.7-10.4); Carbon Dioxide 23 mmol/L (20-31); Chloride 106 mmol/L (98-107); Potassium 3.6 mmol/L (3.5-5.1); Sodium 139 mmol/L (136-145); Total Protein 6.5 g/dL (5.7-8.2)
[2025-01-02 06:34] LABS: Alkaline Phosphatase 132 U/L (46-116); Bilirubin, Total 1.3 mg/dL (0.2-1.0); Glucose 132 mg/dL (74-106)
--- NOTE | 2025-01-02 08:36 | DVHINCON2 ---
Consult Note Consult Consult Note Consult note Subjective 89-year-old female seen at [facility] following a ground level fall. Patient does report history of AFib with RVR, CKD, hypothyroidism, hypertension. Beatriz barber was evaluated in ER yesterday by ER physician x-ray was completed diagnosis of nondisplaced inferior rami fracture was made patient was admitted to [facility]. Patient also has previous history of left hip IM nail placement 3 years ago doing well with it. Today, patient reports no distress on my interview, denies any additional pain in other joints lower back or other that are new patient does report pain to left hip with weight-bearing. On further interview patient also states at home she ambulates short distances with walker otherwise uses wheelchair. Today she denies any numbness tingling or any other concerns. Patient denies any history of loss of consciousness head Injury nausea or vomiting fever or other concerns. Objective: General: No acute distress Musculoskeletal: Inspection: No visible deformities or sign of open injuries Palpation: Tenderness over inferior pubic rami, no pain at rest. Range of motion: Limited due to pain, patient does not want to attempt weight- bearing today. Otherwise grossly neuro vascularity intact. Patient with intact sensation and pulses distally. Imaging Previous CT completed in ER confirms nondisplaced inferior rami fracture, no hardware loosening noted Assessment Nondisplaced inferior rami fracture following ground level fall concerns Chronic left hip IM nail placement without new findings or concerns Plan: Disposition defer to primary care team Ortho standpoint view recommendation patient to be discharged with walker/her own wheelchair, instruct patient on weight-bearing as tolerated, if patient can not be safely discharged [facility] recommended Pain management per primary care team, recommend gabapentin for sleep pain control at night if needed Medicine team to consider DVT prophylaxis if I risk due to immobility. Also recommend medicine team to put a referral to primary care team that manages patient as outpatient for osteoporotic workup and management Patient to follow up with orthopedic clinic 1 week from discharge with repeat x- ray ER return precautions for any new or worsening of signs and symptoms Above plan was discussed with patient bedside nurse this CPT code 65966 ICD 10 diagnosis code S32 0.81 M 81.0 age-related osteoporosis Plan discussed with: Patient, Other (bedside nurse) HUBER SAUER Jan 02, 2025 08:36
[2025-01-02] MEDS ORDERED: AMIODARONE HCL 200 MG TAB PO SCH (10:00)
[2025-01-02] MEDS: METOPROLOL SUCCINATE XL 50 MG TAB PO SCH (10:06)
--- NOTE | 2025-01-02 10:29 | DVHINCON2 ---
Date Seen: Jan 02, 2025 Referring Physician MD [place] resident Reason for Consultation AFib with RVR History of Present Illness This is an 89-year-old female patient who presents to the emergency room with chief complaint of mechanical fall. The patient reports that she was seated in a chair and trying to reach over to grab her pajamas when she fell out of her chair. She reports pain down her left side. EMS was called and she was brought to the emergency room for further evaluation. Imaging revealed a minimally displaced fracture of the inferior pubic ramus on the left. Cardiology has now been consulted for atrial fibrillation with rapid ventricular response. Initial twelve lead electrocardiogram reveals atrial fibrillation and left bundle branch block. Initial troponin of 69ng/L with flat trend thereafter. Significant past medical history includes congestive heart failure, atrial fibrillation (on Amiodarone and Xarelto), presence of permanent pacemaker (Medtronic), hypertension, hyperlipidemia, hypothyroidism, chronic kidney disease, and morbid obesity. 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 She currently does not recall his name. Past Medical History Past medical history reviewed. No other significant than mentioned above. Past Surgical History Left hip arthroplasty Cholecystectomy Tonsillectomy Adenectomy Hemorrhoidectomy Bilateral cataract removal Family History: Diabetes mellitus G8 FATHER (HEART ATTACK), Family History Family history reviewed. Social History Denies the use of tobacco, alcohol or illicit drugs. Allergies: Coded Allergies: Codeine (Verified Allergy, Unknown, 11/06/23) Hydrocodone (Verified Allergy, Unknown, 11/06/23) Home Meds Active Scripts Levothyroxine Sodium (Synthroid) 137 Mcg Tab, 137 MCG PO QAM for 30 Days, #30 TAB Prov:JOSE L FLORES MD 11/09/23 Reported Medications Patients Own Medication (PATIENTS OWN MEDICATION) ., 100 MG PO BID PTS OWN MED-OBTAIN FROM PT AND SEND TO RX DRUG:PACERONE FREQ:100 MG BID RX# EXP: DATE DISP: TECH: [facility]: 01/02/25 Alprazolam (Xanax) 0.5 Mg Tb, 1 TAB PO BID, #30 TAB 11/06/23 Escitalopram Oxalate (Lexapro) 10 Mg Tab, 1 TAB PO DAILY, #30 TAB 11/06/23 Rivaroxaban (XARELTO) 10 Mg Tab, 15 MG PO DAILY, TAB 11/06/23 Home Meds Home medications reviewed. Current Medications Current Medications Medications (Trade) Dose Ordered Sig/Gamaliel Route PRN Reason Start Time Stop Time Status Last Admin Tramadol HCl (Ultram) 50 mg [id number] PRN PO MILD PAIN (1-3 PAIN SCALE) 01/01/25 22:30 Nitroglycerin (Ntrostat Sublingual) 0.4 mg Q5MINP PRN SL FOR CHEST PAIN 01/01/25 22:30 Morphine Sulfate 2 mg Q30M PRN IV FOR CHEST PAIN 01/01/25 22:30 Rivaroxaban (Xarelto Tablet) 15 mg QPM PO 01/01/25 22:30 01/02/25 00:46 Metoprolol Succinate (Toprol Xl) 25 mg DAILY PO 01/02/25 10:00 01/02/25 10:06 Patient Own Medication 100 DAILY PO 01/01/25 22:45 01/01/25 23:19 DC Alprazolam (Xanax Tablet) 0.5 mg DAILY PO 01/01/25 22:45 01/02/25 10:06 Acetaminophen (Tylenol Tablet) 650 mg Q6HPRN PRN PO MILD PAIN (1-3 PAIN SCALE) 01/01/25 23:15 01/02/25 08:24 Amiodarone HCl (Cordarone Tablet) 100 mg BID PO 01/02/25 10:00 01/02/25 00:05 DC Amiodarone HCl (Cordarone Tablet) 100 mg BID PO 01/02/25 00:15 01/02/25 00:47 Ceftriaxone Sodium 50 ml @ 100 mls/hr Q24H IV 01/02/25 02:45 01/02/25 03:36 Review of Systems Constitutional: No symptom reported Ears, Nose, & Throat: No symptom reported Eyes: No symptom reported Neurological: No symptoms reported Pulmonary/Respiratory: No symptoms reported Cardiovascular: No symptom reported Gastrointestinal: No symptom reported Genitourinary: No symptom reported Musculoskeletal: Left-sided generalized pain Skin: No symptom reported Psychiatric: No symptom reported Endocrine: No symptom reported Hematologic/Lymphatic: No symptom reported Vital Signs Vital Signs Date Time Temp Pulse Resp B/P (MAP) Pulse Ox O2 Delivery O2 Flow Rate FiO2 01/02/25 10:06 91 126/71 01/02/25 09:00 97.6 16 93 97.6 01/01/25 23:59 Nasal Cannula* 2 28 Physical Exam General Appearance: Cooperative. Morbidly obese Pulmonary/Respiratory: Clear, bilateral breaths sounds. Cardiovascular/Chest: Irregular rate and rhythm. Peripheral Pulses: 2+ Radial (R). 2+ Radial (L). 2+ Pedal (R). 2+ Pedal (L) Abdominal Exam: Normal bowel sounds. Ankle Exam: Negative ankle edema Lower extremities: Negative lower extremity edema Neuro/Mental Status: A/OX4, coherent. Thoughts/Psych: Normal thought pattern. Appropriate mood and affect. Good judgment and insight. Appearance: No acute distress. Skin Exam: Normal inspection. Normal color. Warm and dry. Labs/Diagnostic Data Labs Test 01/02/25 05:34 01/02/25 00:00 01/01/25 23:45 01/01/25 23:02 Range/Units White Blood Count 11.9 #H 4.4-10.8 10^3/uL Red Blood Count 4.72 4.0-5.20 10^6/uL Hemoglobin 12.7 12.2-16.2 g/dL Hematocrit 40.1 36.0-46.0 % Mean Corpuscular Volume 85.0 80.0-100.0 fL Mean Corpuscular Hemoglobin 26.9 L 28.0-32.0 pg Mean Corpuscular Hemoglobin Concent 31.7 L 32.0-36.0 g/dL Red Cell Distribution Width 16.4 H 11.8-14.3 % Platelet Count 169 140-450 10^3/uL Mean Platelet Volume 8.8 6.9-10.8 fL Neutrophils (%) (Auto) 88.9 H 37.0-80.0 % Lymphocytes (%) (Auto) 5.4 L 10.0-50.0 % Monocytes (%) (Auto) 4.2 0.0-12.0 % Eosinophils (%) (Auto) 1.1 0.0-7.0 % Basophils (%) (Auto) 0.4 0.0-2.0 % Neutrophils # (Auto) 10.6 H 1.6-8.6 10 ^3/uL Lymphocytes # (Auto) 0.6 0.4-5.4 10 ^3/uL Monocytes # (Auto) 0.5 0-1.3 10 ^3/uL Eosinophils # (Auto) 0.1 0-0.8 10 ^3/uL Basophils # (Auto) 0 0-0.2 10 ^3/uL Nucleated Red Blood Cells 0.1 % Sodium Level 139 136-145 mmol/L Potassium Level 3.6 3.5-5.1 mmol/L Chloride Level 106 98-107 mmol/L Carbon Dioxide Level 23 20-31 mmol/L Anion Gap 10 5-15 Blood Urea Nitrogen 17 9-23 mg/dL Creatinine 1.13 H 0.550-1.02 mg/dL Glomerular Filtration Rate Calc 47 >90 mL/min BUN/Creatinine Ratio 15.0 10.0-20.0 Serum Glucose 132 H 74-106 mg/dL Calcium Level 9.5 8.7-10.4 mg/dL Total Bilirubin 1.3 H 0.2-1.0 mg/dL Aspartate Amino Transferase (AST) 18 13-40 U/L Alanine Aminotransferase (ALT) 17 7-40 U/L Alkaline Phosphatase 132 H 46-116 U/L Total Protein 6.5 5.7-8.2 g/dL Albumin 4.2 3.2-4.8 g/dL Influenza Type A Antigen Negative Negative Influenza Type B Antigen Negative Negative SARS-CoV-2 Antigen (Rapid) Negative NEGATIVE Erythrocyte Sedimentation Rate 12 0-20 mm/hr C-Reactive Protein High Sensitivity 0.53 <1.0 mg/dL Thyroid Stimulating Hormone (TSH) 0.87 0.55-4.78 uIU/mL Test 01/01/25 22:32 01/01/25 22:13 01/01/25 21:09 01/01/25 18:08 Range/Units POC Glucose 170 H 70-106 mg/dl Urine Color Light-yellow Yellow Urine Clarity Clear Clear Urine pH 5.5 5.0-9.0 Urine Specific Morris 1.020 1.001-1.035 Urine Protein Negative Negative Urine Ketones Negative Negative Urine Blood Negative Negative /uL Urine Nitrite Negative Negative Urine Bilirubin Negative Negative Urine Urobilinogen Normal Negative mg/dL Urine Leukocyte Esterase 2+ Negative /uL Urine RBC 1 0 - 4 /hpf Urine Microscopic WBC 5 0-5 /HPF Urine Squamous Epithelial Cells Few <5 /hpf Urine Bacteria Few H None Seen /hpf Urine Glucose Normal Normal mg/dL Troponin I High Sensitivity 68 *H </=34 ng/L B-Type Natriuretic Peptide 149.96 0-100 pg/mL Assessment Paroxysmal atrial fibrillation (on Xarelto and Amiodarone therapy) NSTEMI, likely type II Chronic HFpEF, NYHA class II Hypertension Hyperlipidemia Presence of permanent pacemaker (Medtronic) Displaced fracture of the inferior pubic ramus on the left Chronic kidney disease Morbid obesity Plan/Recommendation We will continue with the following plan/recommendations (Dr. Hall): * Echocardiogram to evaluate cardiac function * Previous echocardiogram from 11/07/2023 reveals EF 55% * [id number] VASc score: 5 points, HAS-BLED score: 2 points * Beta-radha for rate control * Continue antiarrhythmic agent, amiodarone * Continue home dose Xarelto * Monitor and replete electrolytes as needed, keep potassium greater than 4 and magnesium greater than 2 * Continuous telemetry monitoring * Pacemaker interrogation At the time of assessment, the patient is still in atrial fibrillation now with controlled rate. Continue with medical management. Thank you for allowing us to care for this patient. Please call with any questions or concerns. Critical care time spent: 40 minutes This medical document was created using an electronic medical record system with voice recognition software and computerized dictation system. Although this document has been carefully reviewed, there might still be some phonetic and typographical errors. Occasional wrong-word or ``sound-alike substitutions may have occurred due to the inherent limitations of voice recognition software. These areas are purely typographical due to imperfections of the software programs and do not reflect any compromise in the patient's medical care. Please read the chart carefully and recognize, using context, where these substitutions have occurred. Plan discussed with: Patient NYHA Physical activity limitations: Class2(Slight)fatigue,sob Date of Service: Jan 02, 2025 Billing Provider: ANTWON COUCH Cardiology Common Codes: [id number] INP/OBS CARE (High) Cardiology Consultation Codes: [id number] CONSULT <45MIN ANTWON COUCH Jan 02, 2025 10:28
--- NOTE | 2025-01-02 15:11 | DVHPNRES ---
Progress Note Date Seen: Jan 02, 2025 Resident Creating Document: HUBER CARBAJAL RESIDENT Medical Necessity Reason Pt with a Central, PICC or Fol: No Subjective Review of Systems DEANDRE GRAMAJO is an 89-year-old female with PMHx of afib, HTN, hypothyrodisim, HF who presented to the ER with a chief complaint of a mechanical fall. Patient experienced a fall 01/01 around 3:00 p.m. while reaching out for something. She denies hitting her head, syncope, postictal state or any seizure-like movements. Patient was brought to the ER by EMS, pelvic x-ray showed minimally displaced fracture of the inferior pubic ramus on the left side. Orthopedics was consulted, recommended the patient to be discharged with walker/wheelchair, weight-bearing as tolerated, and pain management. Cardiology was consulted, recommended rate control, amiodarone and anticoagulation for AFib. Pt states that 2 years ago she had a left fracture and in 2014 a left should fracture, according to the daughter, she is being falling many times Social history, patient lives alone, has a caregiver who visits 3 hours per day has a daughter in the area Patient seen and examined in the bedside. Reports pain on ambulation or palpation of the left hip. Objective vital signs Vital Sign Date Time Temp Pulse Resp B/P (MAP) Pulse Ox O2 Delivery O2 Flow Rate FiO2 01/02/25 13:00 97.9 108 17 105/61 (76) 91 97.9 01/02/25 08:00 Room Air* 0 21 Total Intake and Output 01/01/25 01/01/25 01/02/25 15:00 23:00 07:00 Intake Total 350 ml Balance 350 ml medications Current Medications Medications Dose Ordered Sig/Gamaliel Route Start Time Stop Time Status Last Admin Dose Admin Tramadol HCl 50 mg [id number] PRN PO 01/01/25 22:30 Nitroglycerin 0.4 mg Q5MINP PRN SL 01/01/25 22:30 Morphine Sulfate 2 mg Q30M PRN IV 01/01/25 22:30 Rivaroxaban 15 mg QPM PO 01/01/25 22:30 01/02/25 00:46 15 MG Metoprolol Succinate 25 mg DAILY PO 01/02/25 10:00 01/02/25 10:06 25 MG Alprazolam 0.5 mg DAILY PO 01/01/25 22:45 01/02/25 10:06 0.5 MG Acetaminophen 650 mg Q6HPRN PRN PO 01/01/25 23:15 01/02/25 08:24 650 MG Ceftriaxone Sodium 50 ml @ 100 mls/hr Q24H IV 01/02/25 02:45 01/02/25 03:36 100 MLS/HR Patient Own Medication 1 Q12H PO 01/02/25 13:00 Examination Patient lying in bed, in no acute distress General: Well-built, afebrile, palor, mucosae are moist Cardiovascular: Irregular S1 and S2. No murmurs, gallops or rubs. No JVD elevation. No pedal edema Respiratory: Normal B/L air entry on room air. Clear lung sounds on auscultation Abdomen: Soft, nontender, nondistended, normoactive bowel sounds, no rebound tenderness, no organomegaly, no masses Genitourinary: Deferred MSK/skin: Mobilizes 4 limbs. Skin is dry and warm Neurological: No motor, no sensitive deficits, normal speech. Pupils are isocoric and reactive. Left hip can not be ambulated without pain. Psych/Mental Status: A/Ox3 laboratory and microbiology Laboratory Tests 01/02/25 05:34 Test 01/02/25 05:34 Range/Units Serum Glucose 132 H 74-106 mg/dL Labs and/or images reviewed: Labs reviewed by me, Image(s) reviewed by me Problem List/Assessment/Plan Problem List/Assessment/Plan Minimally displaced fracture of the left inferior pubic ramus Mechanical fall History of internal fixation device in the proximal left femur Orthopedics consulted, recommended medical management, pain control Paroxysmal Atrial fibrillation CHADS-VASc score 5, his bled score 2 Medtronic Permanent pacemaker Chronic HFpEF, NYHA class 2 Hypertension Hyperlipidemia Echocardiogram pending Continue metoprolol, amiodarone and Xarelto Patient is on telemetry unit Ruled out UTI Patient has no symptoms or UA findings Paula, 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 Parada Plan discussed with: Patient My Orders My Orders Orders - HUBER CARBAJAL Procedure Category Date Status Time Pt Request For Service PT 01/02/25 Logged 10:39 Date of Service: Jan 02, 2025 Billing Provider: MAGED MONAE MD Common Visit Codes: [id number] INP/OBS CARE(HIGH) HUBER CARBAJAL Jan 02, 2025 15:11 MAGED MONAE MD Jan 03, 2025 23:39
[2025-01-02] MEDS: traMADol HCL 50 MG TAB PO PRN (16:09)
[2025-01-02] MEDS: PACERONE PO SCH (16:10)
--- NOTE | 2025-01-02 18:06 | MEDREC ---
[facility] Intervention Section I [facility] Intervention: Review courses of therapy (PER [facility] GUIDELINE THERE IS NO ROLE FOR SCREENING FOR OR TREATMENT OF ASYMPTOMATIC BACTERIURIA AMONG OLDER ADULTS. IF A PATIENT IS FOUND TO HAVE PERIOPERATIVE BACTERIURIA IN THE CONFIRMED ABSENCE OF URINARY SYMPTOMS,THERE IS NO BENEFIT FROM ANTIBIOTIC THERAPY) GERMAN GOODEN PHARMACIST Jan 02, 2025 18:06
[2025-01-02] MEDS: GABAPENTIN 100 MG CAP PO ONE (21:05)
[2025-01-03] VITALS (10 sets, daily range): BP systolic 105–128; BP diastolic 48–74; PULSE 76–128; RESP 15–20; TEMP 97.8–98.8; O2SAT 90–94
[2025-01-03 06:40] LABS: Calcium 9.2 mg/dL (8.7-10.4); Chloride 103 mmol/L (98-107); Potassium 4.3 mmol/L (3.5-5.1); Sodium 138 mmol/L (136-145)
[2025-01-03 06:41] LABS: Anion Gap 9 (5-15); Carbon Dioxide 26 mmol/L (20-31)
[2025-01-03 06:46] LABS: BUN/Creatinine Ratio 16.7 (10.0-20.0)
[2025-01-03 06:47] LABS: Blood Urea Nitrogen 25 mg/dL (9-23); Glucose 136 mg/dL (74-106)
[2025-01-03 07:06] LABS: Basophils # (auto) 0.1 10 ^3/uL (0-0.2); Basophils % (auto) 0.7 % (0.0-2.0); Eosinophils # (auto) 0.3 10 ^3/uL (0-0.8); Eosinophils % (auto) 2.5 % (0.0-7.0); Hematocrit 37.8 % (36.0-46.0); Hemoglobin 12.3 g/dL (12.2-16.2); Lymphocytes # (auto) 0.6 10 ^3/uL (0.4-5.4); Lymphocytes % (auto) 5.9 % (10.0-50.0); Mean Corpuscular Hemoglobin 27.6 pg (28.0-32.0); Mean Corpuscular Hgb Conc. 32.5 g/dL (32.0-36.0); Monocytes # (auto) 0.6 10 ^3/uL (0-1.3); Monocytes % (auto) 5.6 % (0.0-12.0); Neutrophils # (auto) 8.7 10 ^3/uL (1.6-8.6); Neutrophils % (auto) 85.3 % (37.0-80.0); Nucleated Red Blood Cells % 0.1 %; Platelet Count (auto) 160 10^3/uL (140-450); Red Blood Cells 4.44 10^6/uL (4.0-5.20); Red Cell Distribution Width 16.7 % (11.8-14.3); White Blood Cell 10.2 10^3/uL (4.4-10.8)
[2025-01-03] MEDS: SODIUM CHLORIDE 0.9% 1,000 ML IV SCH ×2 (09:38→12:04)
[2025-01-03] MEDS: OXYCODONE W/ ACETAMINOPHEN 5/325MG TABLET PO ONE (13:00)
[2025-01-03] MEDS: GABAPENTIN 300 MG CAP PO ONE (13:00)
[2025-01-03] MEDS: ONDANSETRON HCL 4 MG/2 ML VIAL IV PRN (13:00)
--- NOTE | 2025-01-03 14:30 | DVHPN2 ---
Consult Progress Note Subjective Other Systems: The patient remains in atrial fibrillation, rate in 90-100's at time of assessment. Patient complaining of pain to hip Objective vital signs Vital Sign Date Time Temp Pulse Resp B/P (MAP) Pulse Ox O2 Delivery O2 Flow Rate FiO2 01/03/25 12:33 97.8 122 16 128/69 (88) 97.8 01/03/25 10:52 92 01/03/25 07:55 Nasal Cannula* 3 32 Total Intake and Output 01/02/25 01/02/25 01/03/25 15:00 23:00 07:00 Intake Total 240 ml 850 ml Output Total 0 ml Balance 240 ml 850 ml medications Current Medications Medications Dose Ordered Sig/Gamaliel Route Start Time Stop Time Status Last Admin Dose Admin Tramadol HCl 50 mg [id number] PRN PO 01/01/25 22:30 01/03/25 08:09 50 MG Nitroglycerin 0.4 mg Q5MINP PRN SL 01/01/25 22:30 Rivaroxaban 15 mg QPM PO 01/01/25 22:30 01/02/25 18:11 15 MG Metoprolol Succinate 25 mg DAILY PO 01/02/25 10:00 01/03/25 09:35 25 MG Alprazolam 0.5 mg DAILY PO 01/01/25 22:45 01/03/25 09:33 0.5 MG Acetaminophen 650 mg Q6HPRN PRN PO 01/01/25 23:15 01/02/25 08:24 650 MG Ceftriaxone Sodium 50 ml @ 100 mls/hr Q24H IV 01/02/25 02:45 01/03/25 02:45 100 MLS/HR Patient Own Medication 1 Q12H PO 01/02/25 13:00 01/03/25 01:00 1 Oxycodone/ Acetaminophen 1 tab Q4HP PRN PO 01/03/25 10:45 Gabapentin 300 mg BID PO 01/03/25 22:00 Ondansetron HCl 4 mg Q4HPRN PRN IV 01/03/25 12:15 01/03/25 13:00 4 MG Examination: GENERAL:Abnormal (Generalized weakness), LUNGS:Normal, CVS:Normal, NEURO:Normal laboratory and microbiology Laboratory Tests 01/03/25 05:26 Test 01/03/25 05:26 Range/Units Serum Glucose 136 H 74-106 mg/dL Problem List/Assessment/Plan Problem List/Assessment/Plan Paroxysmal atrial fibrillation (on Xarelto and Amiodarone therapy) NSTEMI, likely type II Chronic HFpEF, NYHA class II Hypertension Hyperlipidemia Presence of permanent pacemaker (Medtronic) Displaced fracture of the inferior pubic ramus on the left Chronic kidney disease Thyroid disease Morbid obesity Plan/Recommendation (Dr. Hall): * Echocardiogram to evaluate cardiac function * Previous echocardiogram from 11/07/2023 reveals EF 55% * [id number] VASc score: 5 points, HAS-BLED score: 2 points * Beta-radha for rate control, up-titrate as tolerated * Continue antiarrhythmic agent, amiodarone * Continue home dose Xarelto * Monitor and replete electrolytes as needed, keep potassium greater than 4 and magnesium greater than 2 * Continuous telemetry monitoring * Pacemaker interrogation At the time of assessment, the patient is still in atrial fibrillation now with controlled rate. Continue with medical management. Thank you for allowing us to care for this patient. Please call with any questions or concerns. This medical document was created using an electronic medical record system with voice recognition software and computerized dictation system. Although this document has been carefully reviewed, there might still be some phonetic and typographical errors. Occasional wrong-word or ``sound-alike substitutions may have occurred due to the inherent limitations of voice recognition software. These areas are purely typographical due to imperfections of the software programs and do not reflect any compromise in the patient's medical care. Please read the chart carefully and recognize, using context, where these substitutions have occurred. Plan discussed with: Patient Dietary Evaluation Review Comments: 1. Recommend liberalizing to Regular diet to expand choices 2. Suggest PRN bowel regimen w/ laxative/stool softener while on opiods 3. Would benefit from Ensure Enlive once/day (provides 350 kcal, 20 gm pro) to meet remainder of est. needs with fair PO intakes 4. Appreciate weekly weights to trend possible gains/losses Expected Outcomes/Goals: Improved nutritional status, weight maintenance Date of Service: Jan 03, 2025 Billing Provider: ANTWON COUCH Common Visit Codes: [id number] INP/OBS CARE(HIGH) ANTWON COUCH Jan 03, 2025 14:30
--- NOTE | 2025-01-03 16:06 | DVHPNRES ---
Progress Note Date Seen: Jan 03, 2025 Resident Creating Document: HUBER CARBAJAL RESIDENT Medical Necessity Reason Pt with a Central, PICC or Fol: No Subjective Review of Systems DEANDRE GRAMAJO is an 89-year-old female with PMHx of afib, HTN, hypothyrodisim, HF who presented to the ER with a chief complaint of a mechanical fall. Patient experienced a fall 01/01 around 3:00 p.m. while reaching out for something. She denies hitting her head, syncope, postictal state or any seizure-like movements. Patient was brought to the ER by EMS, pelvic x-ray showed minimally displaced fracture of the inferior pubic ramus on the left side. Orthopedics was consulted, recommended the patient to be discharged with walker/wheelchair, weight-bearing as tolerated, and pain management. Cardiology was consulted, recommended rate control, amiodarone and anticoagulation for AFib. Pt states that 2 years ago she had a left fracture and in 2014 a left should fracture, according to the daughter, she is being falling many times Social history, patient lives alone, has a caregiver who visits 3 hours per day has a daughter in the area Patient seen and examined in the bedside. Started oxycodone. Physical therapy recommended SNF, Patient agreed. school services officer consulted Objective vital signs Vital Sign Date Time Temp Pulse Resp B/P (MAP) Pulse Ox O2 Delivery O2 Flow Rate FiO2 01/03/25 12:33 97.8 122 16 128/69 (88) 97.8 01/03/25 10:52 92 01/03/25 07:55 Nasal Cannula* 3 32 Total Intake and Output 01/02/25 01/02/25 01/03/25 15:00 23:00 07:00 Intake Total 240 ml 850 ml Output Total 0 ml Balance 240 ml 850 ml medications Current Medications Medications Dose Ordered Sig/Gamaliel Route Start Time Stop Time Status Last Admin Dose Admin Tramadol HCl 50 mg [id number] PRN PO 01/01/25 22:30 01/03/25 08:09 50 MG Nitroglycerin 0.4 mg Q5MINP PRN SL 01/01/25 22:30 Rivaroxaban 15 mg QPM PO 01/01/25 22:30 01/02/25 18:11 15 MG Metoprolol Succinate 25 mg DAILY PO 01/02/25 10:00 01/03/25 09:35 25 MG Alprazolam 0.5 mg DAILY PO 01/01/25 22:45 01/03/25 09:33 0.5 MG Acetaminophen 650 mg Q6HPRN PRN PO 01/01/25 23:15 01/02/25 08:24 650 MG Ceftriaxone Sodium 50 ml @ 100 mls/hr Q24H IV 01/02/25 02:45 01/03/25 02:45 100 MLS/HR Patient Own Medication 1 Q12H PO 01/02/25 13:00 01/03/25 01:00 1 Oxycodone/ Acetaminophen 1 tab Q4HP PRN PO 01/03/25 10:45 Gabapentin 300 mg BID PO 01/03/25 22:00 Ondansetron HCl 4 mg Q4HPRN PRN IV 01/03/25 12:15 01/03/25 13:00 4 MG Examination Patient lying in bed, in no acute distress General: Well-built, afebrile, palor, mucosae are moist Cardiovascular: Irregular S1 and S2. No murmurs, gallops or rubs. No JVD elevation. No pedal edema Respiratory: Normal B/L air entry on room air. Clear lung sounds on auscultation Abdomen: Soft, nontender, nondistended, normoactive bowel sounds, no rebound tenderness, no organomegaly, no masses Genitourinary: Deferred MSK/skin: Mobilizes 4 limbs. Skin is dry and warm Neurological: No motor, no sensitive deficits, normal speech. Pupils are isocoric and reactive. Left hip can not be ambulated without pain. Psych/Mental Status: A/Ox3 laboratory and microbiology Laboratory Tests 01/03/25 13:31 01/03/25 05:26 Test 01/03/25 05:26 Range/Units Serum Glucose 136 H 74-106 mg/dL Microbiology Date/Time Source Procedure Growth Status 01/01/25 23:02 Blood Blood Culture - Preliminary NO GROWTH AFTER 24 HOURS OF INCUBATION. Resulted 01/01/25 22:13 Voided Urine Urine Culture - Preliminary Resulted Labs and/or images reviewed: Labs reviewed by me, Image(s) reviewed by me Problem List/Assessment/Plan Problem List/Assessment/Plan Minimally displaced fracture of the left inferior pubic ramus Mechanical fall History of internal fixation device in the proximal left femur Orthopedics consulted, recommended medical management, pain control Paroxysmal Atrial fibrillation CHADS-VASc score 5, his bled score 2 Medtronic Permanent pacemaker Chronic HFpEF, NYHA class 2 Hypertension Hyperlipidemia Echocardiogram pending Continue metoprolol, amiodarone and Xarelto Patient is on telemetry unit Ruled out UTI Patient has no symptoms or UA findings Paula, likely VMN superimposed on CKD 3 Baseline creatinine 1.16 Monitor Hypothyroidism Home medication levothyroxine 137 mcg daily Morbid obesity Counseled regarding healthy diet and lifestyle Physical therapy consulted school services officer consulted for SNF Plan discussed with patient, daughter at the bedside in which all questions have been answered Code status discussed with patient in front of the daughter, modified code: No compressions, no intubation - okay to defibrillate and using inotropes Case discussed with Dr. Parada Plan discussed with: Patient, Daughter (Over the phone) My Orders My Orders Orders - HUBER CARBAJAL Procedure Category Date Status Time Oxycodone W/ Acet PHA 01/03/25 In Process 5/325mg Tab (Percocet 10:45 Gabapentin Capsule PHA 01/03/25 In Process (Neurontin Capsule) 22:00 Ondansetron Hcl PHA 01/03/25 In Process (Zofran) 12:15 * Scrummaster CONS 01/03/25 Transmitted Consult NS PHA 01/03/25 Transmitted 23:15 Basic Metabolic Panel LAB 01/04/25 Verified 04:00 Dietary Evaluation Review Comments: 1. Recommend liberalizing to Regular diet to expand choices 2. Suggest PRN bowel regimen w/ laxative/stool softener while on opiods 3. Would benefit from Ensure Enlive once/day (provides 350 kcal, 20 gm pro) to meet remainder of est. needs with fair PO intakes 4. Appreciate weekly weights to trend possible gains/losses Expected Outcomes/Goals: Improved nutritional status, weight maintenance Date of Service: Jan 03, 2025 Billing Provider: MAGED MONAE MD Common Visit Codes: [id number] INP/OBS CARE(HIGH) HUBER CARBAJAL Jan 03, 2025 16:06 MAGED MONAE MD Jan 03, 2025 23:46
[2025-01-03] MEDS: DOCUSATE SOD 100 MG CAP PO ONE (18:06)
[2025-01-03] MEDS: POLYETHYLENE GLYCOL 17 GM PWDR PO ONE (18:07)
[2025-01-03] MEDS: OXYCODONE W/ ACETAMINOPHEN 5/325MG TABLET PO PRN (18:07)
[2025-01-03] MEDS: DOCUSATE SOD 100 MG CAP PO SCH (21:19)
[2025-01-03] MEDS: GABAPENTIN 300 MG CAP PO SCH (21:19)
[2025-01-03] MEDS: SODIUM CHLORIDE 0.9% 250 ML IV ONE (23:36)
[2025-01-04] VITALS (7 sets, daily range): BP systolic 98–131; BP diastolic 48–72; PULSE 82–117; RESP 15–20; TEMP 97.9–98.2; O2SAT 90–98
[2025-01-04 07:13] LABS: Anion Gap 11 (5-15); Calcium 9.3 mg/dL (8.7-10.4); Carbon Dioxide 24 mmol/L (20-31); Chloride 102 mmol/L (98-107); Potassium 4.4 mmol/L (3.5-5.1); Sodium 137 mmol/L (136-145)
[2025-01-04 07:19] LABS: BUN/Creatinine Ratio 21.8 (10.0-20.0)
[2025-01-04 07:26] LABS: Blood Urea Nitrogen 31 mg/dL (9-23); Glucose 146 mg/dL (74-106)
--- NOTE | 2025-01-04 09:06 | DVH ---
CHEST RADIOGRAPH Indication: SOB Technique: Single frontal view of the chest was obtained Comparison: XY CHEST PORTABLE on DOS: 01/01/25, XY CHEST PORTABLE on DOS: 11/06/23 FINDINGS: Lines and Tubes: Left sided pacemaker. Lungs: No focal consolidation. Pleura: No effusion. No pneumothorax. Cardiomediastinal contours: Cardiomegaly Bones: No acute osseous abnormality. IMPRESSION: Cardiomegaly with CHF.
[2025-01-04] MEDS ORDERED: FURO20TA4 PO (10:47)
--- NOTE | 2025-01-04 12:13 | DVHPN2 ---
Consult Progress Note Subjective Other Systems: Patient remains in atrial fibrillation with uncontrolled rate on shuttle repairer. Patient also states that her pain has not been very well controlled Objective vital signs Vital Sign Date Time Temp Pulse Resp B/P (MAP) Pulse Ox O2 Delivery O2 Flow Rate FiO2 01/04/25 09:24 99 113/64 01/04/25 08:00 20 92 Nasal Cannula* 3 32 01/04/25 05:00 98.1 98.1 Total Intake and Output 01/03/25 01/03/25 01/04/25 15:00 23:00 07:00 Intake Total 1300 ml 500 ml Balance 1300 ml 500 ml medications Current Medications Medications Dose Ordered Sig/Gamaliel Route Start Time Stop Time Status Last Admin Dose Admin Tramadol HCl 50 mg [id number] PRN PO 01/01/25 22:30 01/03/25 08:09 50 MG Nitroglycerin 0.4 mg Q5MINP PRN SL 01/01/25 22:30 Rivaroxaban 15 mg QPM PO 01/01/25 22:30 01/03/25 18:07 15 MG Metoprolol Succinate 25 mg DAILY PO 01/02/25 10:00 01/04/25 09:24 25 MG Alprazolam 0.5 mg DAILY PO 01/01/25 22:45 01/04/25 09:23 0.5 MG Acetaminophen 650 mg Q6HPRN PRN PO 01/01/25 23:15 01/02/25 08:24 650 MG Ceftriaxone Sodium 50 ml @ 100 mls/hr Q24H IV 01/02/25 02:45 01/04/25 01:48 100 MLS/HR Patient Own Medication 1 Q12H PO 01/02/25 13:00 01/04/25 00:45 1 Oxycodone/ Acetaminophen 1 tab Q4HP PRN PO 01/03/25 10:45 01/04/25 05:40 1 TAB Gabapentin 300 mg BID PO 01/03/25 22:00 01/04/25 09:23 300 MG Ondansetron HCl 4 mg Q4HPRN PRN IV 01/03/25 12:15 01/03/25 13:00 4 MG Polyethylene Glycol 17 gm DAILYPRN PRN PO 01/03/25 16:45 Docusate Sodium 100 mg BID PO 01/03/25 22:00 01/04/25 09:23 100 MG Examination: GENERAL:Abnormal (Generalized weakness), LUNGS:Normal, CVS:Abnormal (Atrial fibrillation with uncontrolled rate), NEURO:Normal laboratory and microbiology Laboratory Tests 01/04/25 05:36 01/03/25 05:26 Test 01/04/25 05:36 Range/Units Serum Glucose 146 H 74-106 mg/dL Problem List/Assessment/Plan Problem List/Assessment/Plan Paroxysmal atrial fibrillation (on Xarelto and Amiodarone therapy) NSTEMI, likely type II Chronic HFpEF, NYHA class II Hypertension Hyperlipidemia Presence of permanent pacemaker (Medtronic) Displaced fracture of the inferior pubic ramus on the left Chronic kidney disease Thyroid disease Morbid obesity Plan/Recommendation (Dr. Hall): * Echocardiogram to evaluate cardiac function * Previous echocardiogram from 11/07/2023 reveals EF 55% * [id number] VASc score: 5 points, HAS-BLED score: 2 points * Beta-radha for rate control, up-titrate as tolerated * Continue antiarrhythmic agent, amiodarone. Consider switching to flecainide (will discuss with pt and family) * Continue home dose Xarelto * Monitor and replete electrolytes as needed, keep potassium greater than 4 and magnesium greater than 2 * Continuous telemetry monitoring * Pacemaker interrogation: * battery life approximately nine months * High RV threshold on January 01, 2025 Case reviewed and discussed with . Thank you for allowing us to care for this patient. Please call with any questions or concerns. This medical document was created using an electronic medical record system with voice recognition software and computerized dictation system. Although this document has been carefully reviewed, there might still be some phonetic and typographical errors. Occasional wrong-word or ``sound-alike substitutions may have occurred due to the inherent limitations of voice recognition software. These areas are purely typographical due to imperfections of the software programs and do not reflect any compromise in the patient's medical care. Please read the chart carefully and recognize, using context, where these substitutions have occurred. Plan discussed with: Patient Dietary Evaluation Review Comments: 1. Recommend liberalizing to Regular diet to expand choices 2. Suggest PRN bowel regimen w/ laxative/stool softener while on opiods 3. Would benefit from Ensure Enlive once/day (provides 350 kcal, 20 gm pro) to meet remainder of est. needs with fair PO intakes 4. Appreciate weekly weights to trend possible gains/losses Expected Outcomes/Goals: Improved nutritional status, weight maintenance Date of Service: Jan 04, 2025 Billing Provider: ANTWON COUCH Common Visit Codes: [id number] INP/OBS CARE(HIGH) ANTWON COUCH Jan 04, 2025 12:13
[2025-01-04] MEDS: POLYETHYLENE GLYCOL 17 GM PWDR PO PRN (12:59)
[2025-01-04] MEDS: METOPROLOL SUCCINATE XL 50 MG TAB PO ONE (12:59)
[2025-01-04] MEDS: FUROSEMIDE 20 MG/2 ML VIAL IV ONE (14:30)
--- NOTE | 2025-01-04 15:51 | DVHPNRES ---
Progress Note Date Seen: Jan 04, 2025 Resident Creating Document: HUBER CARBAJAL RESIDENT Medical Necessity Reason Pt with a Central, PICC or Fol: No Subjective Review of Systems DEANDRE GRAMAJO is an 89-year-old female with PMHx of afib, HTN, hypothyrodisim, HF who presented to the ER with a chief complaint of a mechanical fall. Patient experienced a fall 01/01 around 3:00 p.m. while reaching out for something. She denies hitting her head, syncope, postictal state or any seizure-like movements. Patient was brought to the ER by EMS, pelvic x-ray showed minimally displaced fracture of the inferior pubic ramus on the left side. Orthopedics was consulted, recommended the patient to be discharged with walker/wheelchair, weight-bearing as tolerated, and pain management. Cardiology was consulted, recommended rate control, amiodarone and anticoagulation for AFib. Pt states that 2 years ago she had a left fracture and in 2014 a left should fracture, according to the daughter, she is being falling many times Social history, patient lives alone, has a caregiver who visits 3 hours per day has a daughter in the area 01/03-Patient seen and examined in the bedside. Started oxycodone. Physical therapy recommended SNF, Patient agreed. youth services librarian consulted 01/04-patient seen and examined at the bedside. Telemetry reviewed, heart rate is 110s to 120s beats per minute with intermittent PVCs. Started Lasix 20 mg IV b.i.d.. Cardiology increase metoprolol to 50 mg daily Objective vital signs Vital Sign Date Time Temp Pulse Resp B/P (MAP) Pulse Ox O2 Delivery O2 Flow Rate FiO2 01/04/25 12:59 122 118/62 01/04/25 12:36 98.2 17 98 98.2 01/04/25 08:00 Nasal Cannula* 3 32 Total Intake and Output 01/03/25 01/03/25 01/04/25 15:00 23:00 07:00 Intake Total 1300 ml 500 ml Balance 1300 ml 500 ml medications Current Medications Medications Dose Ordered Sig/Gamaliel Route Start Time Stop Time Status Last Admin Dose Admin Tramadol HCl 50 mg [id number] PRN PO 01/01/25 22:30 01/04/25 12:59 50 MG Nitroglycerin 0.4 mg Q5MINP PRN SL 01/01/25 22:30 Rivaroxaban 15 mg QPM PO 01/01/25 22:30 01/03/25 18:07 15 MG Alprazolam 0.5 mg DAILY PO 01/01/25 22:45 01/04/25 09:23 0.5 MG Acetaminophen 650 mg Q6HPRN PRN PO 01/01/25 23:15 01/02/25 08:24 650 MG Ceftriaxone Sodium 50 ml @ 100 mls/hr Q24H IV 01/02/25 02:45 01/04/25 01:48 100 MLS/HR Patient Own Medication 1 Q12H PO 01/02/25 13:00 01/04/25 12:59 1 Oxycodone/ Acetaminophen 1 tab Q4HP PRN PO 01/03/25 10:45 01/04/25 05:40 1 TAB Gabapentin 300 mg BID PO 01/03/25 22:00 01/04/25 09:23 300 MG Ondansetron HCl 4 mg Q4HPRN PRN IV 01/03/25 12:15 01/03/25 13:00 4 MG Polyethylene Glycol 17 gm DAILYPRN PRN PO 01/03/25 16:45 01/04/25 12:59 17 GM Docusate Sodium 100 mg BID PO 01/03/25 22:00 01/04/25 09:23 100 MG Metoprolol Succinate 50 mg DAILY PO 01/05/25 10:00 Furosemide 20 mg BIDD IV 01/04/25 22:00 UNV Examination Patient lying in bed, in no acute distress General: Well-built, afebrile, palor, mucosae are moist Cardiovascular: Irregular S1 and S2. No murmurs, gallops or rubs. No JVD elevation. Bilateral 1+ pitting edema. Respiratory: Bilateral crackles heard on lower lung ibrahim bilaterally on nasal cannula. Abdomen: Soft, nontender, nondistended, normoactive bowel sounds, no rebound tenderness, no organomegaly, no masses Genitourinary: Deferred MSK/skin: Mobilizes 4 limbs. Skin is dry and warm Neurological: No motor, no sensitive deficits, normal speech. Pupils are isocoric and reactive. Left hip can not be ambulated without pain. Psych/Mental Status: A/Ox3 laboratory and microbiology Laboratory Tests 2/26/25 05:36 01/03/25 05:26 Test 01/04/25 05:36 Range/Units Serum Glucose 146 H 74-106 mg/dL Microbiology Date/Time Source Procedure Growth Status 01/01/25 23:02 Blood Blood Culture - Preliminary NO GROWTH AFTER 48 HOURS OF INCUBATION. Resulted 01/01/25 22:13 Voided Urine Urine Culture - Final Complete Labs and/or images reviewed: Image(s) reviewed by me Problem List/Assessment/Plan Problem List/Assessment/Plan Minimally displaced fracture of the left inferior pubic ramus Mechanical fall History of internal fixation device in the proximal left femur Orthopedics consulted, recommended medical management, pain control Paroxysmal Atrial fibrillation with a RVR CHADS-VASc score 5, his bled score 2 Medtronic Permanent pacemaker Chronic HFpEF, NYHA class 2 Hypertension Hyperlipidemia Echocardiogram pending Continue metoprolol, amiodarone and Xarelto Patient is on telemetry unit Cardiology-increase metoprolol 50 mg p.o. daily IV Lasix 20 mg b.i.d. 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 Parada Plan discussed with: Patient My Orders My Orders Orders - HUBER CARBAJAL RESIDENT Procedure Category Date Status Time Polyethylene Glycol PHA 01/03/25 In Process 17g Powder (Miralax 16:45 Docusate Sodium PHA 01/03/25 In Process Capsule (Colace 22:00 Chest Portable XY 01/04/25 Resulted 07:07 Furosemide Injection PHA 01/04/25 Logged (Lasix Injection) 14:30 Furosemide Injection PHA 01/04/25 Logged (Lasix Injection) 22:00 Dietary Evaluation Review Comments: 1. Recommend liberalizing to Regular diet to expand choices 2. Suggest PRN bowel regimen w/ laxative/stool softener while on opiods 3. Would benefit from Ensure Enlive once/day (provides 350 kcal, 20 gm pro) to meet remainder of est. needs with fair PO intakes 4. Appreciate weekly weights to trend possible gains/losses Expected Outcomes/Goals: Improved nutritional status, weight maintenance HUBER CARBAJAL RESIDENT Jan 04, 2025 15:51
[2025-01-04] MEDS: PANTOPRAZOLE 40 MG/10 ML VIAL INJ IV ONE (17:17)
[2025-01-04] MEDS: SYNTHROID 137 MCG PO SCH (19:15)
[2025-01-04] MEDS ORDERED: guaiFENesin 200 MG/10 ML UD PO ONE (19:15)
[2025-01-04] MEDS ORDERED: guaiFENesin 200 MG/10 ML UD PO PRN (19:15)
--- NOTE | 2025-01-04 19:51 | DVHSR ---
APPROVED REPORT EXAM: Two-dimensional and M-mode echocardiogram with Doppler and color Doppler. Blood Pressure: 126/71 mmHg INDICATION Evaluate cardiac function RISK FACTORS Obesity: Height: 5'0", Weight: 179 DIMENSIONS LVDd4.4 (3.8-5.7cm)LA (2D) (1.9-4.0cm)Aortic Root3.3 (2.0-3.7cm) LVDs3.1 (2.5-4.0cm)LA (MM) (1.9-4.0cm)Aortic Cusp Exc1.5 (1.5-2.0cm) EF (%) 57.0 (55-70%)Rt. Atrium (1.9-4.0cm)Asc. Aorta cm IVSd1.4 (0.7-1.1cm)RV (D) (1.8-2.4cm) PWd1.3 (0.7-1.1cm) Mitral Valve MitralMitral Stenosis E wave0.87m/sMV Mean GR.mmHg E/A ratio0.02D MVAcm2 Aortic Valve Aortic ValveAortic Stenosis V10.50m/Mikey Mean GR.2mmHg V20.81m/Mikey Peak GR.3mmHg LVOT Diameter2.0 (1.8-2.4cm)Doppler AVA1.94cm2 Pulmonic Valve V20.93m/s Tricuspid Valve TR Velocity3.60m/s [id number] Other Information Quality : LimitedRhythm : Technically limited study due to body habitus, patient sitting up. Conclusion Technically good study. Undetermined rhythm. Concentric LVH. Biatrial enlargement. Dilation of the sinuses of Valsalva. Left ventricular function is preserved at 50% with normal RV function. There is mild pulmonic insufficiency with mild tricuspid regurgitation No intracardiac masses thrombi or vegetations discernible.
[2025-01-04] MEDS: LACTULOSE 20Gm/30ML SOLN PO ONE (20:31)
[2025-01-04] MEDS: FUROSEMIDE 20 MG/2 ML VIAL IV SCH (21:47)
[2025-01-05] VITALS (9 sets, daily range): BP systolic 98–114; BP diastolic 50–68; PULSE 77–110; RESP 17–20; TEMP 97.3–98.5; O2SAT 90–96
--- NOTE | 2025-01-05 09:09 | DVHPN2 ---
Consult Progress Note Subjective Patient reports: Feels better Other Systems: Patient in atrial fibrillation with controlled rate in 90's at time of assessment Objective vital signs Vital Sign Date Time Temp Pulse Resp B/P (MAP) Pulse Ox O2 Delivery O2 Flow Rate FiO2 01/05/25 08:28 98.1 77 17 98/61 (73) 96 98.1 01/05/25 08:20 Nasal Cannula* 3 32 Total Intake and Output 01/04/25 01/04/25 01/05/25 15:00 23:00 07:00 Intake Total 400 ml 550 ml Balance 400 ml 550 ml medications Current Medications Medications Dose Ordered Sig/Gamaliel Route Start Time Stop Time Status Last Admin Dose Admin Tramadol HCl 50 mg [id number] PRN PO 01/01/25 22:30 01/05/25 03:23 50 MG Nitroglycerin 0.4 mg Q5MINP PRN SL 01/01/25 22:30 Rivaroxaban 15 mg QPM PO 01/01/25 22:30 01/04/25 17:17 15 MG Alprazolam 0.5 mg DAILY PO 01/01/25 22:45 01/04/25 09:23 0.5 MG Acetaminophen 650 mg Q6HPRN PRN PO 01/01/25 23:15 01/04/25 17:17 650 MG Ceftriaxone Sodium 50 ml @ 100 mls/hr Q24H IV 01/02/25 02:45 01/05/25 03:02 100 MLS/HR Oxycodone/ Acetaminophen 1 tab Q4HP PRN PO 01/03/25 10:45 01/04/25 05:40 1 TAB Gabapentin 300 mg BID PO 01/03/25 22:00 01/04/25 21:46 300 MG Ondansetron HCl 4 mg Q4HPRN PRN IV 01/03/25 12:15 01/03/25 13:00 4 MG Polyethylene Glycol 17 gm DAILYPRN PRN PO 01/03/25 16:45 01/04/25 12:59 17 GM Docusate Sodium 100 mg BID PO 01/03/25 22:00 01/04/25 21:47 100 MG Metoprolol Succinate 50 mg DAILY PO 01/05/25 10:00 Furosemide 20 mg BIDD IV 01/04/25 22:00 01/05/25 06:17 20 MG Pantoprazole Sodium 40 mg DAILY IV 01/05/25 10:00 Guaifenesin 200 mg Q6HP PRN PO 01/04/25 19:15 Patient Own Medication 1 DAILY PO 01/04/25 19:15 Examination: GENERAL:Abnormal (Generalized weakness), LUNGS:Normal, CVS:Normal, NEURO:Normal laboratory and microbiology Laboratory Tests 01/03/25 05:26 Test 01/05/25 08:50 Range/Units Serum Glucose Pending Problem List/Assessment/Plan Problem List/Assessment/Plan Paroxysmal atrial fibrillation (on Xarelto and Amiodarone therapy) NSTEMI, likely type II Chronic HFpEF, NYHA class II Hypertension Hyperlipidemia Presence of permanent pacemaker (Medtronic) Mild tricuspid regurgitation Pulmonary hypertension Displaced fracture of the inferior pubic ramus on the left Chronic kidney disease Thyroid disease Morbid obesity Plan/Recommendation (Dr. Hall): * Echocardiogram reveals EF 50% with biatrial enlargement, RVSP 55mmHg * [id number] VASc score: 5 points, HAS-BLED score: 2 points * Beta-radha for rate control, up-titrate as tolerated * Switch antiarrhythmic agent to flecainide * Continue home dose Xarelto * Monitor and replete electrolytes as needed, keep potassium greater than 4 and magnesium greater than 2 * Continuous telemetry monitoring * Pacemaker interrogation: * battery life approximately nine months * High RV threshold on January 01, 2025 Case reviewed and discussed with . Discussed with patient and her daughter Maureen plans to switch amiodarone to flecainide. Patient and daughter both agreeable to plan. Patient's heart rate controlled at time of assessment. Patient states that she is feeling better today. Thank you for allowing us to care for this patient. Please call with any questions or concerns. This medical document was created using an electronic medical record system with voice recognition software and computerized dictation system. Although this document has been carefully reviewed, there might still be some phonetic and typographical errors. Occasional wrong-word or ``sound-alike substitutions may have occurred due to the inherent limitations of voice recognition software. These areas are purely typographical due to imperfections of the software programs and do not reflect any compromise in the patient's medical care. Please read the chart carefully and recognize, using context, where these substitutions have occurred. Plan discussed with: Patient Dietary Evaluation Review Comments: 1. Recommend liberalizing to Regular diet to expand choices 2. Suggest PRN bowel regimen w/ laxative/stool softener while on opiods 3. Would benefit from Ensure Enlive once/day (provides 350 kcal, 20 gm pro) to meet remainder of est. needs with fair PO intakes 4. Appreciate weekly weights to trend possible gains/losses Expected Outcomes/Goals: Improved nutritional status, weight maintenance Date of Service: Jan 05, 2025 Billing Provider: ANTWON COUCH Common Visit Codes: [id number] INP/OBS CARE(HIGH) ANTWON COUCH Jan 05, 2025 09:09
[2025-01-05 09:23] LABS: Chloride 101 mmol/L (98-107); Potassium 4.5 mmol/L (3.5-5.1)
[2025-01-05 09:24] LABS: Anion Gap 9 (5-15); Calcium 9.4 mg/dL (8.7-10.4); Carbon Dioxide 26 mmol/L (20-31)
[2025-01-05 09:29] LABS: BUN/Creatinine Ratio 23.2 (10.0-20.0)
[2025-01-05 09:32] LABS: Blood Urea Nitrogen 36 mg/dL (9-23); Glucose 142 mg/dL (74-106); Sodium 136 mmol/L (136-145)
[2025-01-05] MEDS: PANTOPRAZOLE 40 MG/10 ML VIAL INJ IV SCH (09:41)
[2025-01-05] MEDS: METOPROLOL SUCCINATE XL 50 MG TAB PO SCH (09:43)
[2025-01-05 11:50] LABS: Basophils # (auto) 0.1 10 ^3/uL (0-0.2); Basophils % (auto) 1.3 % (0.0-2.0); Eosinophils # (auto) 0.4 10 ^3/uL (0-0.8); Eosinophils % (auto) 4.2 % (0.0-7.0); Hematocrit 35.1 % (36.0-46.0); Hemoglobin 11.5 g/dL (12.2-16.2); Lymphocytes # (auto) 0.8 10 ^3/uL (0.4-5.4); Lymphocytes % (auto) 8.5 % (10.0-50.0); Mean Corpuscular Hemoglobin 28.1 pg (28.0-32.0); Mean Corpuscular Hgb Conc. 32.8 g/dL (32.0-36.0); Mean Corpuscular Volume 85.6 fL (80.0-100.0); Monocytes # (auto) 0.9 10 ^3/uL (0-1.3); Neutrophils # (auto) 6.7 10 ^3/uL (1.6-8.6); Nucleated Red Blood Cells % 0.1 %; Platelet Count (auto) 157 10^3/uL (140-450); Red Cell Distribution Width 16.2 % (11.8-14.3); White Blood Cell 8.9 10^3/uL (4.4-10.8)
[2025-01-05] MEDS: FLECAINIDE ACETATE 50 MG TAB PO SCH (11:59)
[2025-01-05] MEDS: SODIUM CHLORIDE 0.9% 500 ML IV ONE (14:41)
--- NOTE | 2025-01-05 17:42 | DVHPNRES ---
Progress Note Date Seen: Jan 05, 2025 Resident Creating Document: HUBER CARBAJAL RESIDENT Medical Necessity Reason Pt with a Central, PICC or Fol: No Subjective Review of Systems DEANDRE GRAMAJO is an 89-year-old female with PMHx of afib, HTN, hypothyrodisim, HF who presented to the ER with a chief complaint of a mechanical fall. Patient experienced a fall 01/01 around 3:00 p.m. while reaching out for something. She denies hitting her head, syncope, postictal state or any seizure-like movements. Patient was brought to the ER by EMS, pelvic x-ray showed minimally displaced fracture of the inferior pubic ramus on the left side. Orthopedics was consulted, recommended the patient to be discharged with walker/wheelchair, weight-bearing as tolerated, and pain management. Cardiology was consulted, recommended rate control, amiodarone and anticoagulation for AFib. Pt states that 2 years ago she had a left fracture and in 2014 a left should fracture, according to the daughter, she is being falling many times Social history, patient lives alone, has a caregiver who visits 3 hours per day has a daughter in the area 01/03-Patient seen and examined in the bedside. Started oxycodone. Physical therapy recommended SNF, Patient agreed. deputy sheriff court services consulted 01/04-patient seen and examined at the bedside. Telemetry reviewed, heart rate is 110s to 120s beats per minute with intermittent PVCs. Started Lasix 20 mg IV b.i.d.. Cardiology increase metoprolol to 50 mg daily 01/05-patient seen and examined at the bedside. No acute complaint, cardiology started flecainide, discontinued amiodarone. Creatinine and increased to 1.5. 500 cc NS bolus given. Pending repeat BMP. Discontinued Lasix. Objective vital signs Vital Sign Date Time Temp Pulse Resp B/P (MAP) Pulse Ox O2 Delivery O2 Flow Rate FiO2 01/05/25 16:23 98.0 110 17 111/67 (82) 94 98.0 01/05/25 08:20 Nasal Cannula* 3 32 Total Intake and Output 01/04/25 01/04/25 01/05/25 15:00 23:00 07:00 Intake Total 400 ml 550 ml Balance 400 ml 550 ml medications Current Medications Medications Dose Ordered Sig/Gamaliel Route Start Time Stop Time Status Last Admin Dose Admin Tramadol HCl 50 mg [id number] PRN PO 01/01/25 22:30 01/05/25 03:23 50 MG Nitroglycerin 0.4 mg Q5MINP PRN SL 01/01/25 22:30 Rivaroxaban 15 mg QPM PO 01/01/25 22:30 01/05/25 17:35 15 MG Alprazolam 0.5 mg DAILY PO 01/01/25 22:45 01/05/25 09:41 0.5 MG Acetaminophen 650 mg Q6HPRN PRN PO 01/01/25 23:15 01/04/25 17:17 650 MG Ceftriaxone Sodium 50 ml @ 100 mls/hr Q24H IV 01/02/25 02:45 01/05/25 03:02 100 MLS/HR Oxycodone/ Acetaminophen 1 tab Q4HP PRN PO 01/03/25 10:45 01/04/25 05:40 1 TAB Gabapentin 300 mg BID PO 01/03/25 22:00 01/05/25 09:41 300 MG Ondansetron HCl 4 mg Q4HPRN PRN IV 01/03/25 12:15 01/03/25 13:00 4 MG Polyethylene Glycol 17 gm DAILYPRN PRN PO 01/03/25 16:45 01/04/25 12:59 17 GM Docusate Sodium 100 mg BID PO 01/03/25 22:00 01/05/25 09:41 100 MG Metoprolol Succinate 50 mg DAILY PO 01/05/25 10:00 01/05/25 09:43 50 MG Pantoprazole Sodium 40 mg DAILY IV 01/05/25 10:00 Guaifenesin 200 mg Q6HP PRN PO 01/04/25 19:15 Flecainide Acetate 100 mg Q12HR PO 01/05/25 10:00 01/05/25 11:59 100 MG Patient Own Medication 1 DAILY@0600 PO 01/06/25 06:00 Examination Patient lying in bed, in no acute distress General: Obese t, afebrile, palor, mucosae are moist Cardiovascular: Irregular S1 and S2. No murmurs, gallops or rubs. No JVD elevation. Bilateral 1+ pitting edema. Respiratory: Bilateral crackles heard on lower lung ibrahim bilaterally on nasal cannula. Abdomen: Soft, nontender, nondistended, normoactive bowel sounds, no rebound tenderness, no organomegaly, no masses Genitourinary: Deferred MSK/skin: Mobilizes 4 limbs. Skin is dry and warm Neurological: No motor, no sensitive deficits, normal speech. Pupils are isocoric and reactive. Left hip can not be ambulated without pain. Psych/Mental Status: A/Ox3 laboratory and microbiology Laboratory Tests 01/05/25 08:50 Test 01/05/25 08:50 Range/Units Serum Glucose 142 H 74-106 mg/dL Microbiology Date/Time Source Procedure Growth Status 01/01/25 23:02 Blood Blood Culture - Preliminary NO GROWTH AFTER 72 HOURS OF INCUBATION. Resulted 01/01/25 22:13 Voided Urine Urine Culture - Final Complete Labs and/or images reviewed: Labs reviewed by me, Image(s) reviewed by me Problem List/Assessment/Plan Problem List/Assessment/Plan 01/05-No acute complaint, cardiology started flecainide, discontinued amiodarone. Creatinine and increased to 1.5. 500 cc NS bolus given. Pending repeat BMP. Discontinued Lasix. Minimally displaced fracture of the left inferior pubic ramus Mechanical fall History of internal fixation device in the proximal left femur Orthopedics consulted, recommended medical management, pain control Paroxysmal Atrial fibrillation with a RVR CHADS-VASc score 5, his bled score 2 Medtronic Permanent pacemaker Chronic HFpEF, NYHA class 2 Hypertension Hyperlipidemia Echocardiogram pending Continue metoprolol, and Xarelto Patient is on telemetry unit Cardiology-increase metoprolol 50 mg p.o. daily IV Lasix 20 mg b.i.d. discontinued IV amiodarone switched to flecainide 100 mg b.i.d. 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 Parada Plan discussed with: Patient My Orders My Orders Orders - HUBER CARBAJAL RESIDENT Procedure Category Date Status Time Guaifenesin Plain PHA 01/04/25 In Process Liquid (Robitussin Brisa 19:15 Patients Own PHA 01/06/25 In Process Medication 06:00 BIPAP RT 01/05/25 Logged 11:41 Incentive Spirometry ORDERS 01/05/25 Transmitted Q 1hr 11:41 Basic Metabolic Panel LAB 01/05/25 Logged 15:31 Dietary Evaluation Review Comments: 1. Recommend liberalizing to Regular diet to expand choices 2. Suggest PRN bowel regimen w/ laxative/stool softener while on opiods 3. Would benefit from Ensure Enlive once/day (provides 350 kcal, 20 gm pro) to meet remainder of est. needs with fair PO intakes 4. Appreciate weekly weights to trend possible gains/losses Expected Outcomes/Goals: Improved nutritional status, weight maintenance HUBER CARBAJAL RESIDENT Jan 05, 2025 17:42
[2025-01-05 18:14] LABS: Chloride 102 mmol/L (98-107); Potassium 4.6 mmol/L (3.5-5.1)
[2025-01-05 18:15] LABS: Anion Gap 8 (5-15); Calcium 9.3 mg/dL (8.7-10.4); Carbon Dioxide 25 mmol/L (20-31)
[2025-01-05 18:20] LABS: BUN/Creatinine Ratio 28.5 (10.0-20.0)
[2025-01-05 18:26] LABS: Blood Urea Nitrogen 39 mg/dL (9-23); Glucose 128 mg/dL (74-106); Sodium 135 mmol/L (136-145)
[2025-01-06] VITALS (7 sets, daily range): BP systolic 100–120; BP diastolic 66–81; PULSE 92–107; RESP 18; TEMP 98–98.5; O2SAT 90–95
[2025-01-06 06:22] LABS: Anion Gap 11 (5-15); Carbon Dioxide 22 mmol/L (20-31); Chloride 102 mmol/L (98-107); Potassium 4.5 mmol/L (3.5-5.1)
[2025-01-06 06:23] LABS: Calcium 9.4 mg/dL (8.7-10.4)
[2025-01-06 06:28] LABS: BUN/Creatinine Ratio 26.1 (10.0-20.0)
[2025-01-06 06:29] LABS: Magnesium 2.3 mg/dL (1.6-2.6)
[2025-01-06] MEDS: SYNTHROID 137 MCG PO SCH (06:32)
[2025-01-06 06:41] LABS: Blood Urea Nitrogen 30 mg/dL (9-23); Glucose 128 mg/dL (74-106); Sodium 135 mmol/L (136-145)
--- NOTE | 2025-01-06 11:04 | DVH ---
Date: 01/06/2025 09:46 AM Examination: XY KUB ABDOMEN SINGLE VIEW History: r/o sbo Comparison: None TECHNIQUE: Frontal views of the abdomen was obtained. FINDINGS: Bowel gas pattern is unremarkable. The lung bases are unremarkable. Minimally displaced fractures involving the inferior and superior pubic ramus IMPRESSION: Nonobstructive bowel gas pattern. Minimally displaced fractures involving the inferior and superior pubic ramus
[2025-01-06] MEDS: FLEET ENEMA(ADULT) 135 ML PR ONE (11:16)
[2025-01-06] MEDS ORDERED: POLY335015 PO (11:24)
[2025-01-06] MEDS ORDERED: DOCU-94 PO (11:24)
[2025-01-06] MEDS ORDERED: METO-6 PO (11:24)
[2025-01-06] MEDS ORDERED: FLEC100T PO (11:24)
--- NOTE | 2025-01-06 11:25 | DVHDSRES ---
Discharge Summary Date of Admission Resident Creating Document: HUBER CARBAJAL RESIDENT Jan 01, 2025 at 22:28 Date of Discharge: Jan 06, 2025 Labs/Diagnostic Data: Laboratory Results Test 01/06/25 05:11 01/05/25 08:50 01/03/25 05:26 01/02/25 05:34 Sodium Level 135 mmol/L (136-145) Potassium Level 4.5 mmol/L (3.5-5.1) Chloride Level 102 mmol/L (98-107) Carbon Dioxide Level 22 mmol/L (20-31) Anion Gap 11 (5-15) Blood Urea Nitrogen 30 mg/dL (9-23) Creatinine 1.15 mg/dL (0.550-1.02) Glomerular Filtration Rate Calc 46 mL/min (>90) BUN/Creatinine Ratio 26.1 (10.0-20.0) Serum Glucose 128 mg/dL (74-106) Calcium Level 9.4 mg/dL (8.7-10.4) Magnesium Level 2.3 mg/dL (1.6-2.6) White Blood Count 8.9 10^3/uL (4.4-10.8) Red Blood Count 4.10 10^6/uL (4.0-5.20) Hemoglobin 11.5 g/dL (12.2-16.2) Hematocrit 35.1 % (36.0-46.0) Mean Corpuscular Volume 85.6 fL (80.0-100.0) Mean Corpuscular Hemoglobin 28.1 pg (28.0-32.0) Mean Corpuscular Hemoglobin Concent 32.8 g/dL (32.0-36.0) Red Cell Distribution Width 16.2 % (11.8-14.3) Platelet Count 157 10^3/uL (140-450) Mean Platelet Volume 9.3 fL (6.9-10.8) Neutrophils (%) (Auto) 76.0 % (37.0-80.0) Lymphocytes (%) (Auto) 8.5 % (10.0-50.0) Monocytes (%) (Auto) 10.0 % (0.0-12.0) Eosinophils (%) (Auto) 4.2 % (0.0-7.0) Basophils (%) (Auto) 1.3 % (0.0-2.0) Neutrophils # (Auto) 6.7 10 ^3/uL (1.6-8.6) Lymphocytes # (Auto) 0.8 10 ^3/uL (0.4-5.4) Monocytes # (Auto) 0.9 10 ^3/uL (0-1.3) Eosinophils # (Auto) 0.4 10 ^3/uL (0-0.8) Basophils # (Auto) 0.1 10 ^3/uL (0-0.2) Nucleated Red Blood Cells 0.1 % Creatine Kinase 148 U/L (34-145) Hemoglobin A1c 5.9 % A1C (<5.7) Total Bilirubin 1.3 mg/dL (0.2-1.0) Aspartate Amino Transferase (AST) 18 U/L (13-40) Alanine Aminotransferase (ALT) 17 U/L (7-40) Alkaline Phosphatase 132 U/L (46-116) Total Protein 6.5 g/dL (5.7-8.2) Albumin 4.2 g/dL (3.2-4.8) Triglycerides Level 86 mg/dL (< 150) Cholesterol Level 174 mg/dL (< 200) LDL Cholesterol 99 mg/dL (< 100) HDL Cholesterol 62 mg/dL (40-59) Test 01/02/25 00:00 01/01/25 23:45 01/01/25 23:02 01/01/25 22:32 Influenza Type A Antigen Negative (Negative) Influenza Type B Antigen Negative (Negative) SARS-CoV-2 Antigen (Rapid) Negative (NEGATIVE) Erythrocyte Sedimentation Rate 12 mm/hr (0-20) C-Reactive Protein High Sensitivity 0.53 mg/dL (<1.0) Thyroid Stimulating Hormone (TSH) 0.87 uIU/mL (0.55-4.78) POC Glucose 170 mg/dl (70-106) Test 01/01/25 22:13 01/01/25 21:09 01/01/25 18:08 Urine Color Light-yellow (Yellow) Urine Clarity Clear (Clear) Urine pH 5.5 (5.0-9.0) Urine Specific [place] 1.020 (1.001-1.035) Urine Protein Negative (Negative) Urine Ketones Negative (Negative) Urine Blood Negative /uL (Negative) Urine Nitrite Negative (Negative) Urine Bilirubin Negative (Negative) Urine Urobilinogen Normal mg/dL (Negative) Urine Leukocyte Esterase 2+ /uL (Negative) Urine RBC 1 /hpf (0 - 4) Urine Microscopic WBC 5 /HPF (0-5) Urine Squamous Epithelial Cells Few /hpf (<5) Urine Bacteria Few /hpf (None Seen) Urine Glucose Normal mg/dL (Normal) Troponin I High Sensitivity 68 ng/L (</=34) B-Type Natriuretic Peptide 149.96 pg/mL (0-100) Other Laboratory Tests 01/06/25 05:11 01/05/25 08:50 Brief Hx & Hospital Course: DEANDRE GRAMAJO is an 89-year-old female with PMHx of afib, HTN, hypothyrodisim, HF who presented to the ER with a chief complaint of a mechanical fall. Patient experienced a fall 01/01 around 3:00 p.m. while reaching out for something. She denies hitting her head, syncope, postictal state or any seizure-like movements. Patient was brought to the ER by EMS, pelvic x-ray showed minimally displaced fracture of the inferior pubic ramus on the left side. Orthopedics was consulted, recommended the patient to be discharged with walker/wheelchair, weight-bearing as tolerated, and pain management. Cardiology was consulted, recommended rate control, amiodarone and anticoagulation for AFib. Pt states that 2 years ago she had a left fracture and in 2014 a left should fracture, according to the daughter, she is being falling many times Social history, patient lives alone, has a caregiver who visits 3 hours per day has a daughter in the area During the hospital stay, patient was started on oxycodone. Physical therapy initiated, which recommended fpc facility. Patient agreed. Cardiology was consulted with AFib RVR with intermittent PVCs noted on telemetry. Patient was started on her home medication metoprolol 25 mg which was increased to metoprolol 50 mg daily. Also started on home medication amiodarone b.i.d. which was later switched to flecainide 100 mg b.i.d.. Patient received her home medication Xarelto for atrial fibrillation. For JENNIFER, she received IV hydration with NS which resulted JENNIFER. Patient continued to improve with physical therapy and adequate pain management was established with the oxycodone. She was accepted [facility] acute [facility]. Pacemaker was evaluated during the hospital stay. Patient was passing gas but no bowel movement therefore 1 dose of Fleet enema was given during the admission. MiraLax was prescribed on discharge. 01/06-patient is hemodynamically stable, telemetry reviewed, shows AFib with controlled rate, therefore he has been discharged to [facility] for physical therapy and rehabilitation. Discharge planning was discussed throughout the stay with the daughter Maureen and the patient, family agreed with the discharge plan. 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 Technique: Multidetector CT of the pelvis was performed from iliac crests to pubic symphysis after the administration of intravenous contrast was administered during this examination. Portal venous imaging was obtained. Axial, coronal and sagittal multiplanar reformats were performed by the technologist on a separate workstation. Radiation Dose : CT Dose: CTDI volume is 26.31 mGy. Dose-length product is 1255.75 mGy*cm Findings: Visualized bowel: No bowel wall thickening or dilatation. Ascites: Absent Lymphadenopathy: No pelvic or mesenteric lymphadenopathy. Vasculature: The visualized abdominal aorta is normal in size and caliber. Abdominal and pelvic vessels demonstrate normal enhancement. Pelvic Organs: Unremarkable Musculoskeletal: No acute osseous abnormality. Minimally displaced fracture of the inferior pubic ramus on the left. Internal fixation device noted in the proximal left femur. Bladder: Unremarkable Soft tissues: Unremarkable. IMPRESSION: 1. Minimally displaced fracture inferior pubic ramus on the left 2. Internal fixation device in the proximal left femur All CT scans at this medical facility are performed using dose modulation techniques as appropriate to a performed exam including the following: Automated exposure control was utilized; adjustment of the MA and/or KV according to patient size; and use of iterative reconstruction technique. ATED BY: JOSÉ MIGUEL CHANDLER Jr., DO DICTATED DATE/TIME: 01/01/251830 SIGNED BY: JOSÉ MIGUEL CHANDLER Jr., SIGNED DATE/TIME: 01/01/251830 CC: ORDERING PHYSICIAN: HUBER CARBAJAL RESIDENT PROCEDURE(s): KUB - KUB ABDOMEN SINGLE VIEW REASON: r/o sbo ORDER NUMBER(s): [id number], ACCESSION NUMBER(s): [id number] Date: 01/06/2025 09:46 AM Examination: XY KUB ABDOMEN SINGLE VIEW History: r/o sbo Comparison: None TECHNIQUE: Frontal views of the abdomen was obtained. FINDINGS: Bowel gas pattern is unremarkable. The lung bases are unremarkable. Minimally displaced fractures involving the inferior and superior pubic ramus IMPRESSION: Nonobstructive bowel gas pattern. Minimally displaced fractures involving the inferior and superior pubic ramus ATED BY: AILYN CURTIS MD DICTATED DATE/TIME: 01/06/251100 SIGNED BY: AILYN CURTIS MD SIGNED DATE/TIME: 01/06/251100 CC: Condition at Discharge: Stable Final Diagnosis/Problems List Minimally displaced fracture of the left inferior pubic ramus Mechanical fall History of internal fixation device in the proximal left femur Paroxysmal Atrial fibrillation with a RVR CHADS-VASc score 5, his bled score 2 NSTEMI likely type 2 secondary to Medtronic Permanent pacemaker Chronic HFpEF, NYHA class 2 Pulmonary hypertension moderate Hypertension Hyperlipidemia Ruled out UTI Jennifer, 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 daily for the next 7 days Continue docusate 100 mg twice daily Discharge Statement: "Patient was advised to return to the ER or call 911 if any headaches, dizziness, shortness of breath, chest pain, abdominal pain, bleeding, fevers, or worsening of medical condition. Patient was counseled about treatment plan, medications, possible side effects, patientverbalized understanding. All questions were answered to the best of my ability. This discharge took greater then 30 minutes in planning, reviewing documentation, counseling the patient, and discussing with other team members." ASSESSMENT ASSESSMENT Assessment Minimally displaced fracture of the left inferior pubic ramus Mechanical fall History of internal fixation device in the proximal left femur Paroxysmal Atrial fibrillation with a RVR CHADS-VASc score 5, his bled score 2 Medtronic Permanent pacemaker Chronic HFpEF, NYHA class 2 Hypertension Hyperlipidemia JENNIFER , resolved HUBER CARBAJAL RESIDENT Jan 06, 2025 11:25
--- NOTE | 2025-01-06 12:42 | DVHPN2 ---
Consult Progress Note Date Seen: Jan 06, 2025 Subjective Review of Systems: CVS:Normal, RESPIRATORY:Normal, NEURO:Normal Objective vital signs Vital Sign Date Time Temp Pulse Resp B/P (MAP) Pulse Ox O2 Delivery O2 Flow Rate FiO2 01/06/25 10:00 92 111/81 01/06/25 08:55 98.0 18 91 98.0 01/06/25 08:15 Nasal Cannula* 3 32 Total Intake and Output 01/05/25 01/05/25 01/06/25 15:00 23:00 07:00 Intake Total 1300 ml 120 ml Output Total 400 ml Balance 900 ml 120 ml medications Current Medications Medications Dose Ordered Sig/Gamaliel Route Start Time Stop Time Status Last Admin Dose Admin Tramadol HCl 50 mg [id number] PRN PO 01/01/25 22:30 01/06/25 11:29 50 MG Nitroglycerin 0.4 mg Q5MINP PRN SL 01/01/25 22:30 Rivaroxaban 15 mg QPM PO 01/01/25 22:30 01/05/25 17:35 15 MG Alprazolam 0.5 mg DAILY PO 01/01/25 22:45 01/05/25 09:41 0.5 MG Acetaminophen 650 mg Q6HPRN PRN PO 01/01/25 23:15 01/04/25 17:17 650 MG Ceftriaxone Sodium 50 ml @ 100 mls/hr Q24H IV 01/02/25 02:45 01/06/25 02:02 100 MLS/HR Oxycodone/ Acetaminophen 1 tab Q4HP PRN PO 01/03/25 10:45 01/04/25 05:40 1 TAB Gabapentin 300 mg BID PO 01/03/25 22:00 01/06/25 10:00 300 MG Ondansetron HCl 4 mg Q4HPRN PRN IV 01/03/25 12:15 01/03/25 13:00 4 MG Polyethylene Glycol 17 gm DAILYPRN PRN PO 01/03/25 16:45 01/06/25 09:59 17 GM Docusate Sodium 100 mg BID PO 01/03/25 22:00 01/06/25 10:00 100 MG Metoprolol Succinate 50 mg DAILY PO 01/05/25 10:00 01/06/25 10:00 50 MG Pantoprazole Sodium 40 mg DAILY IV 01/05/25 10:00 01/06/25 09:59 40 MG Guaifenesin 200 mg Q6HP PRN PO 01/04/25 19:15 Flecainide Acetate 100 mg Q12HR PO 01/05/25 10:00 01/06/25 10:35 100 MG Patient Own Medication 1 DAILY@0600 PO 01/06/25 06:00 01/06/25 06:32 1 Examination: LUNGS:Normal, CVS:Normal (A-fib controlled rate), NEURO:Normal laboratory and microbiology Laboratory Tests 01/06/25 05:11 01/05/25 08:50 Test 01/06/25 05:11 Range/Units Serum Glucose 128 H 74-106 mg/dL Problem List/Assessment/Plan Problem List/Assessment/Plan Paroxysmal atrial fibrillation (on Xarelto and Amiodarone therapy) NSTEMI, likely type II secondary to above Chronic compensated HFpEF, NYHA class II Hypertension Hyperlipidemia Presence of permanent pacemaker (Medtronic) Mild tricuspid regurgitation Pulmonary hypertension, moderate Displaced fracture of the inferior pubic ramus on the left Chronic kidney disease Thyroid disease Morbid obesity Plan/Recommendation (Dr. Hall) * Echocardiogram reveals EF 50% with biatrial enlargement, RVSP 55mmHg * Continue home dose Xarelto * [id number] VASc score: 5 points, HAS-BLED score: 2 points * Beta-radha for rate control, up-titrate as tolerated * Antiarrhythmic agent, flecainide * Replete electrolytes as needed, K>4 and Mg>2 * Pacemaker interrogation: * Battery life approximately nine months * High RV threshold on January 01, 2025 Follow-up with primary x ray equipment mechanic as scheduled. There is no further cardiac work-up indicated at this time. Thank you for allowing us to care for this patient. This medical document was created using an electronic medical record system with voice recognition software and computerized dictation system. Although this document has been carefully reviewed, there might still be some phonetic and typographical errors. Occasional wrong-word or ``sound-alike substitutions may have occurred due to the inherent limitations of voice recognition software. These areas are purely typographical due to imperfections of the software programs and do not reflect any compromise in the patient's medical care. Please read the chart carefully and recognize, using context, where these substitutions have occurred. Plan discussed with: Patient, Other Dietary Evaluation Review Comments: 1. Recommend liberalizing to Regular diet to expand choices 2. Suggest PRN bowel regimen w/ laxative/stool softener while on opiods 3. Would benefit from Ensure Enlive once/day (provides 350 kcal, 20 gm pro) to meet remainder of est. needs with fair PO intakes 4. Appreciate weekly weights to trend possible gains/losses Expected Outcomes/Goals: Improved nutritional status, weight maintenance Date of Service: Jan 06, 2025 Billing Provider: ZHENG ESPINO Cardiology Common Codes: [id number] INP/OBS CARE(Mod) ZHENG ESPINO Jan 06, 2025 12:42
== END 2025-01-06 16:37 | DRG 280 ==
LOC: EDBD 16:27 → ER 16:27 → EDSEX 16:27 → OVERFLOW 22:28 → TELE-EAST 23:53 → TELE-WESTW 01-03 10:52
PROVIDERS: ADMIT Student in an Organized Health Care Education/Training Program; ATTEND Student in an Organized Health Care Education/Training Program
DX: I48.0 Paroxysmal atrial fibrillation (principal); N17.0 Acute kidney failure with tubular necrosis; I21.A1 Myocardial infarction type 2; S32.592A Other specified fracture of left pubis, initial encounter for closed fracture; I50.32 Chronic diastolic (congestive) heart failure; I13.0 Hypertensive heart and chronic kidney disease with heart failure and stage 1 through stage 4 chronic kidney disease, or unspecified chronic kidney disease; Z20.822 Contact with and (suspected) exposure to COVID-19; E66.01 Morbid (severe) obesity due to excess calories; E03.9 Hypothyroidism, unspecified; E78.5 Hyperlipidemia, unspecified; I07.1 Rheumatic tricuspid insufficiency; I27.20 Pulmonary hypertension, unspecified; N18.30 Chronic kidney disease, stage 3 unspecified; I44.7 Left bundle-branch block, unspecified; Z79.01 Long term (current) use of anticoagulants; Z90.49 Acquired absence of other specified parts of digestive tract; Z96.642 Presence of left artificial hip joint; Z90.710 Acquired absence of both cervix and uterus; Z83.3 Family history of diabetes mellitus; Z82.49 Family history of ischemic heart disease and other diseases of the circulatory system; Z68.36 Body mass index [BMI] 36.0-36.9, adult; W07.XXXA Fall from chair, initial encounter; Y93.89 Activity, other specified; Y92.89 Other specified places as the place of occurrence of the external cause; Y99.8 Other external cause status
CPT/HCPCS: 36415; 71045; 72192; 74018; 80048; 80053; 80061; 81001; 82550; 82565; 82962; 83036; 83735; 83880; 84443; 84484; 85025; 85652; 86141; 87040; 87086; 87426; 87804; 93005; 93306; 97110; 97163; G0378; J2405; J2470